=== PATIENT | male | born 1990 | race Caucasian/White ===

== ENCOUNTER 2016-10-06 23:21 | Emergency (ER) | payer OTHER ==
[~2016-10-06] VITALS: Ht 167.6 cm; Wt 83.3 kg
[~2016-10-06 23:21] MED LIST: ALBINS/ INH; AMOX875T PO; FLUT220A INH; LORA10TA44 PO; ONDA4TAB46 PO; ONDA8TAB7 PO; PRLSR20 PO; ZNTT/150 PO
[2016-10-06 23:36] VITALS: TEMP 37; Ht 167.6 cm; Wt 83.3 kg
[2016-10-06] MEDS ORDERED: METOCLOPRAMIDE HCL INJ 5 MG/ML 2 ML VIAL IV STA (23:43)
[2016-10-06] MEDS ORDERED: SODIUM CHLORIDE 0.9% 1000ML 1,000 ML IV STA (23:43)
[2016-10-06] MEDS ORDERED: DiphenhydrAMINE HCL 50 MG/ML VIAL IV STA (23:43)
[2016-10-06] MEDS ORDERED: CYM/60 PO (23:55)
[2016-10-06] MEDS ORDERED: PRT/40 PO (23:55)
[2016-10-06] MEDS ORDERED: ONDA-63 PO (23:55)
[2016-10-06] MEDS ORDERED: FLUT1AER5 PO (23:55)
[2016-10-07 00:16] LABS: BASO % 0.4 %; BASO ABS # 0.04 K/uL (0-0.2); COMPLETE YES; EOS % 0.9 %; HEMATOCRIT 45.7 % (42-52); IG% 0.2 %; LYMPH ABS # 1.87 K/uL (1.2-3.4); MEAN CELL VOLUME 81.2 fL (80-100); MEAN CORPUSCULAR HGB CONC 35.7 g/dl (32-36); MEAN PLATELET VOLUME 10.4 fL (7.4-10.4); MONO % 6.1 %; NEUT % 71.4 %; PLATELET COUNT 250 K/uL (130-400); RED BLOOD COUNT 5.63 M/uL (4.7-6.1)
[2016-10-07 00:31] LABS: BUN/CREATININE RATIO 16.2 (10-20); CALCIUM 8.9 mg/dl (8.5-10.1); CREATININE 1.3 mg/dl (0.60-1.40); POTASSIUM 3.5 mmol/L (3.5-5.1)
--- NOTE | 2016-10-07 01:00 | EMERGENCY ROOM VISIT NOTE ---
History First contact with patient: 23:39 Chief Complaint: VOMITING Stated Complaint: HEADACHE,NAUSEA,VOMITING Nursing Triage Summary: Pt complains of nausea and vomiting. Recently tx for skin infection. History of Present Illness The patient is a 25 year old male who presents to the Emergency Room with complaints of nausea vomiting and mild headache with dehydration for the past day. Patient saw the family care doctor this morning and was advised to rest and do a bland diet. Patient states he was on Keflex for rash to his abdomen that is now cleared up. Patient denies chest pain, dyspnea, fever, chills, abdominal pain, diarrhea, back pain, urinary symptoms, cough, neck stiffness, sore throat, congestion. Review of Systems See HPI for pertinent positives & negatives. A total of 10 systems reviewed and were otherwise negative. Past Medical/Surgical History Medical Problems: (1) Acute postoperative abdominal pain (2) Appendicitis (3) Asthma (4) Bronchitis (5) Bronchitis (6) Chest pain (7) Chest pain (8) Costochondritis (9) Foot pain (10) Foot pain (11) Gastritis (12) Migraine (13) Nausea & vomiting (14) Nausea vomiting and diarrhea (15) Nausea, vomiting, and diarrhea (16) Open wound of mouth (17) Pneumonia (18) Postoperative abdominal pain (19) Rectal bleeding (20) RUQ abdominal pain (21) Sinus headache (22) Vertigo (23) Vomiting and diarrhea Surgical Problems: (1) History of appendectomy (2) History of thyroglossal duct cyst removal (3) History of tonsillectomy and adenoidectomy Family History FH: cancer Hypertension Kidney stones Social History Smoking Status: Never Smoker Alcohol Use: none Drug Use: none Marital Status: single Housing Status: lives with family Occupation Status: unemployed Current/Historical Medications Scheduled Duloxetine HCl (Cymbalta), 60 MG PO DAILY Fluticasone Propionate (Inhala (Flovent Diskus), 2 PUFFS PO BID Pantoprazole (Pantoprazole Sodium), 40 MG PO DAILY Scheduled PRN Albuterol Sulf (Proventil 0.083% 2.5MG/3ML), 1 VIAL INH Q4 PRN for Wheezing Loratadine (Allergy), 10 MG PO DAILY PRN for Allergies Ondansetron (Ondansetron HCl), 8 MG PO Q6 PRN for Nausea Allergies Coded Allergies: Sumatriptan (Verified Allergy, Severe, GI SYMPTOMS, 10/06/16) Physical Exam Vital Signs Date Time Temp Pulse Resp B/P Pulse Ox O2 Delivery O2 Flow Rate FiO2 10/07/16 00:31 84 16 112/87 95 Room Air 10/06/16 23:36 37.0 97 18 137/90 96 Room Air Physical Exam VITALS: Vitals are noted on the nurse's note and reviewed by myself. Vital signs stable. GENERAL: Pleasant male, in no acute distress, nondiaphoretic, well-developed well-nourished. SKIN: The skin was without rashes, erythema, edema, or bruising. There is no tenting of the skin. Capillary reflex less than 2 seconds. HEAD: Normocephalic atraumatic. EARS: External auditory canals clear, tympanic membranes pearly hale without erythema or effusion bilaterally. EYES: Pupils equal round and reactive to light and accommodation. Conjunctivae without injection, sclerae without icterus. Extraocular movements intact. NOSE: Patent, turbinates without inflammation or discharge. No sinus tenderness. MOUTH: Mucous membranes mildly dry. Pharynx without erythema or exudate. Uvula midline. Airway patent. Tongue does not deviate. NECK: Supple without nuchal rigidity. No lymphadenopathy. No thyromegaly. Cervical spine is nontender. No JVD. HEART: Regular rate and rhythm without murmurs gallops or rubs. LUNGS: Clear to auscultation bilaterally without wheezes, rales or rhonchi. No dullness to percussion. No retractions or accessory muscle use. ABDOMEN: Positive bowel sounds x 4. Normal tympanic percussion. Soft, nontender, without masses or organomegaly. Servin sign negative. No guarding or rebound tenderness. MUSCULOSKELETAL: No muscle atrophy, erythema, or edema noted. NEURO: Patient was alert and oriented to person place and time. Normal sensation to light and sharp touch. No focal neurological deficits. Medical Decision & Procedures Laboratory Results 10/06/16 23:55 Red Blood Count 5.63, Mean Corpuscular Volume 81.2, Mean Corpuscular Hemoglobin 29.0, Mean Corpuscular Hemoglobin Concent 35.7, Mean Platelet Volume 10.4, Neutrophils (%) (Auto) 71.4, Lymphocytes (%) (Auto) 21.0, Monocytes (%) (Auto) 6.1, Eosinophils (%) (Auto) 0.9, Basophils (%) (Auto) 0.4, Neutrophils # (Auto) 6.35, Lymphocytes # (Auto) 1.87, Monocytes # (Auto) 0.54, Eosinophils # (Auto) 0.08, Basophils # (Auto) 0.04 10/06/16 23:55 Test 10/06/16 23:55 White Blood Count 8.90 K/uL (4.8-10.8) Red Blood Count 5.63 M/uL (4.7-6.1) Hemoglobin 16.3 g/dL (14.0-18.0) Hematocrit 45.7 % (42-52) Mean Corpuscular Volume 81.2 fL (80-100) Mean Corpuscular Hemoglobin 29.0 pg (25-34) Mean Corpuscular Hemoglobin Concent 35.7 g/dl (32-36) Platelet Count 250 K/uL (130-400) Mean Platelet Volume 10.4 fL (7.4-10.4) Neutrophils (%) (Auto) 71.4 % Lymphocytes (%) (Auto) 21.0 % Monocytes (%) (Auto) 6.1 % Eosinophils (%) (Auto) 0.9 % Basophils (%) (Auto) 0.4 % Neutrophils # (Auto) 6.35 K/uL (1.4-6.5) Lymphocytes # (Auto) 1.87 K/uL (1.2-3.4) Monocytes # (Auto) 0.54 K/uL (0.11-0.59) Eosinophils # (Auto) 0.08 K/uL (0-0.5) Basophils # (Auto) 0.04 K/uL (0-0.2) RDW Standard Deviation 38.4 fL (36.4-46.3) RDW Coefficient of Variation 12.9 % (11.5-14.5) Immature Granulocyte % (Auto) 0.2 % Immature Granulocyte # (Auto) 0.02 K/uL (0.00-0.02) Anion Gap 13.0 mmol/L (3-11) Est Creatinine Clear Calc Drug Dose 88.7 ml/min Estimated GFR () 88.5 Estimated GFR (Non- 76.4 BUN/Creatinine Ratio 16.2 (10-20) Calcium Level 8.9 mg/dl (8.5-10.1) Medications Administered Medications (Trade) Dose Ordered Sig/Shelli Route Start Time Stop Time Status Last Admin Dose Admin Sodium Chloride (Nss 1000ml) 1,000 ml @ 999 mls/hr Q1H1M STAT IV 10/06/16 23:43 10/07/16 00:43 DC 10/06/16 23:55 999 MLS/HR Metoclopramide HCl (Reglan Inj) 10 mg NOW STAT IV 10/06/16 23:43 10/07/16 00:03 DC 10/06/16 23:57 10 MG Diphenhydramine HCl (Benadryl Inj) 12.5 mg NOW STAT IV 10/06/16 23:43 10/07/16 00:03 DC 10/06/16 23:56 12.5 MG ED Course Prior records/ancillary studies reviewed. Triage Nursing notes reviewed. Additional history obtained from the family. The patient's history was concerning for nausea, vomiting, and headache Differential diagnosis: Etiologies such as gastritis, dehydration,, food borne illness, infections, appendicitis, diverticulitis, inflammatory bowel disease, obstruction, GI bleed , biliary pathology, as well as others were entertained. Physical examination findings: As above. Abdominal examination revealed no tenderness. Vital signs reviewed and revealed stable. ER treatment provided: IV hydration 1 L NSS. Gatorade On reassessment the patient felt better. Patient was tolerating p.o. intake. Diagnostics interpretation by me: The labs revealed no worrisome leukocytosis or electrolyte abnormality This appears to be consistent with nausea and vomiting. Patient felt much better after being medicated as above. He is tolerating fluids. He did not have acute abdomen on exam. He was advised to rest, stay well-hydrated, do clear liquid diet today and the progress aside to bland diet tomorrow. He was advised to follow-up family care in a few days or here in the ER sooner for abdominal pain, fevers, vomiting, worsening signs or symptoms or as needed. By the evaluation outlined above emergent etiologies such as appendicitis, diverticulitis, obstruction, cardiac sources, mesenteric ischemia, aortic pathology, inflammatory bowel disease, renal colic, PUD, biliary pathology, UTI , as well as others were deemed relatively unlikely. The pt informed about the findings as listed above. All questions were answered and pleased with the treatment. Return instructions were outlined and the patient was discharged in stable condition. Outpatient prescription management: zofran Referral: The patient was referred to their primary care physician for follow-up in 2 to 3 days for a recheck of the current condition. Medical Decision As above Impression Primary Impression: Nausea & vomiting Departure Information Dispostion Home / Self-Care Condition GOOD Referrals Bernice Gant D.O. (PCP) Patient Instructions My [facility] Additional Instructions DO NOT drive, drink alcohol, operate machinery, or perform dangerous activities today. You were given medications in the ER that can affect your ability to safely function or operate a vehicle. Zofran(odansetron) tablets 4mg: Take one and allow it to dissolve in your mouth every four to six hours as needed for nausea or vomiting. Rest and drink plenty of fluids as tolerated. Slow sips of water or sports drinks are recommended instead of large amounts all at once. Continue current medications. Once your stomach is settled start with a clear liquid diet (jello, soup broth, etc.) and then advance as tolerated. You should avoid full, heavy meals for about 24 hrs from the time your symptoms resolved. Return to the ER for persistent vomiting, fevers, abdominal pain, chest pains, difficulty breathing, black or bloody stools, worsening of your condition, or as needed. Follow up with your primary physician in 2-3 days for a recheck of your current condition. Problem Qualifiers Primary Impression: Nausea & vomiting Vomiting type: unspecified Vomiting Intractability: non-intractable Qualified Codes: R11.2 - Nausea with vomiting, unspecified
[2016-10-07] MEDS ORDERED: ONDANSETRON HOME PACK 4MG OD TAB PO ONE (01:15)
[2016-10-07 01:16] VITALS: BP 111/77; PULSE 97; O2SAT 95
== END 2016-10-07 01:20 | disposition home or self-care (01) ==
LOC: C.EDB 23:22 → C.EDA 10-07 01:20
DX: R11.2 Nausea with vomiting, unspecified (principal); J45.909 Unspecified asthma, uncomplicated; Z82.49 Family history of ischemic heart disease and other diseases of the circulatory system

== ENCOUNTER 2017-02-02 21:19 | Emergency (ER) | payer OTHER ==
[~2017-02-02] VITALS: Ht 167.6 cm; Wt 82.1 kg
[~2017-02-02 21:19] MED LIST changes: -AMOX875T PO; +CYM/60 PO; +FLUT1AER5 PO; -FLUT220A INH; +ONDA-63 PO; -ONDA4TAB46 PO; -ONDA8TAB7 PO; +PANT40TA2 PO; -PRLSR20 PO; -ZNTT/150 PO
[2017-02-02 21:23] VITALS: TEMP 36.4; Ht 167.6 cm; Wt 82.1 kg
[2017-02-02 21:29] VITALS: O2SAT 95
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
--- NOTE | 2017-02-02 22:13 | DIAGNOSTIC IMAGING REPORT ---
CHEST ONE VIEW PORTABLE HISTORY: Atypical CHEST PAIN COMPARISON: Chest 08/01/2016. FINDINGS: The lungs are clear. Cardiac silhouette is normal in size. No pleural effusions. No pneumothorax. Old, healed right clavicle fracture. IMPRESSION: No acute process. Electronically signed by: Edgard Escobar M.D. 02/02/2017 10:11 PM Dictated Date/Time: 02/02/2017 10:10 PM
[2017-02-02 22:14] LABS: BASO % 1.2 %; BASO ABS # 0.09 K/uL (0-0.2); COMPLETE YES; EOS % 1.9 %; HEMATOCRIT 51.1 % (42-52); IG% 0.3 %; LYMPH % 23.4 %; LYMPH ABS # 1.77 K/uL (1.2-3.4); MEAN CELL VOLUME 82.8 fL (80-100); MEAN CORPUSCULAR HEMOGLOBIN 28.8 pg (25-34); MEAN CORPUSCULAR HGB CONC 34.8 g/dl (32-36); MEAN PLATELET VOLUME 10.9 fL (7.4-10.4); MONO % 9.1 %; NEUT % 64.1 %; PLATELET COUNT 293 K/uL (130-400); RED BLOOD COUNT 6.17 M/uL (4.7-6.1); WHITE BLOOD COUNT 7.56 K/uL (4.8-10.8)
[2017-02-02] MEDS ORDERED: KETOROLAC TROMETHAMINE 30 MG/ML VIAL IV STA (22:28)
[2017-02-02 22:31] LABS: ALT/SGPT 28 U/L (12-78); BLOOD UREA NITROGEN 20 mg/dl (7-18); BUN/CREATININE RATIO 14.1 (10-20); CARBON DIOXIDE 24 mmol/L (21-32); CHLORIDE 105 mmol/L (98-107); GLUCOSE 119 mg/dl (70-99); POTASSIUM 3.7 mmol/L (3.5-5.1); SODIUM 141 mmol/L (136-145)
[2017-02-02 22:34] LABS: ALKALINE PHOSPHATASE 84 U/L (45-117); AST/SGOT 17 U/L (15-37); CALCIUM 9.4 mg/dl (8.5-10.1)
[2017-02-02 23:24] VITALS: PULSE 88; O2SAT 95
[2017-02-02 23:28] VITALS: BP 124/92
== END 2017-02-02 23:34 | disposition home or self-care (01) ==
LOC: C.EDB 21:21 → C.EDA 23:34
DX: R07.9 Chest pain, unspecified (principal); M94.0 Chondrocostal junction syndrome [Tietze]; J45.909 Unspecified asthma, uncomplicated; G43.909 Migraine, unspecified, not intractable, without status migrainosus; Z80.9 Family history of malignant neoplasm, unspecified; Z82.49 Family history of ischemic heart disease and other diseases of the circulatory system; Z84.1 Family history of disorders of kidney and ureter; Z79.899 Other long term (current) drug therapy

== ENCOUNTER 2017-05-01 16:45 | Emergency (ER) | payer OTHER ==
[~2017-05-01] VITALS: Ht 167.6 cm; Wt 85.6 kg
[~2017-05-01 16:45] MED LIST changes: -PANT40TA2 PO; +PRT/40 PO
[2017-05-01 16:50] VITALS: Ht 167.6 cm; Wt 85.6 kg
[2017-05-01] MEDS ORDERED: KETOROLAC TROMETHAMINE 30 MG/ML VIAL IV STA (17:13)
[2017-05-01] MEDS ORDERED: SODIUM CHLORIDE 0.9% 1000ML 1,000 ML IV STA (17:13)
[2017-05-01] MEDS ORDERED: DiphenhydrAMINE HCL 50 MG/ML VIAL IV STA (17:13)
[2017-05-01] MEDS ORDERED: PROCHLORPERAZINE 5 MG/ML 2 ML VIAL IV STA (17:13)
[2017-05-01 17:57] LABS: BASO % 0.6 %; BASO ABS # 0.04 K/uL (0-0.2); COMPLETE YES; EOS % 2.1 %; HEMATOCRIT 46.3 % (42-52); IG% 0.2 %; LYMPH % 33.8 %; LYMPH ABS # 2.09 K/uL (1.2-3.4); MEAN CELL VOLUME 84.5 fL (80-100); MEAN CORPUSCULAR HEMOGLOBIN 28.1 pg (25-34); MEAN CORPUSCULAR HGB CONC 33.3 g/dl (32-36); MEAN PLATELET VOLUME 10.7 fL (7.4-10.4); MONO % 7.4 %; NEUT % 55.9 %; PLATELET COUNT 256 K/uL (130-400); RED BLOOD COUNT 5.48 M/uL (4.7-6.1); WHITE BLOOD COUNT 6.18 K/uL (4.8-10.8)
--- NOTE | 2017-05-01 17:59 | DIAGNOSTIC IMAGING REPORT ---
CT HEAD WITHOUT CONTRAST (CT) CLINICAL HISTORY: Persistent headache COMPARISON STUDY: 06/01/2010 TECHNIQUE: Axial CT of the brain is performed from the vertex to the skull base. IV contrast was not administered for this examination. A dose lowering technique was utilized adhering to the principles of ALARA. CT DOSE: FINDINGS: No intra or extra-axial mass lesions are visualized. There is no CT evidence of acute cortical infarction. There is no evidence of midline shift. There is no acute hemorrhage. No calvarial fractures are visualized. There is no evidence of pathologic ventricular dilatation. There is no evidence of acute sinusitis IMPRESSION: Normal noncontrast head CT. Electronically signed by: Shant Crawford M.D. 05/01/2017 5:57 PM Dictated Date/Time: 05/01/2017 5:56 PM
--- NOTE | 2017-05-01 18:10 | DIAGNOSTIC IMAGING REPORT ---
CT OF THE CERVICAL SPINE CLINICAL HISTORY: neck pain with radiculopathy COMPARISON STUDY: No previous studies for comparison. CT DOSE: 1021.93 mGy.cm TECHNIQUE: CT scan of the cervical spine was performed from the skull base to the thoracic inlet. Images are reviewed in the axial, sagittal, and coronal planes. IV contrast was not administered for this examination. A dose lowering technique was utilized adhering to the principles of ALARA. FINDINGS: The visualized portions of the lung apices reveal no evidence of pneumothorax. There are mildly prominent retromandibular jugular digastric lymph nodes, likely reactive. The prevertebral soft tissues are normal. No fractures or subluxations are visualized. No significant degenerative changes are evident. If there is clinical concern over the presence of cord pathology or nerve root impingement, an MRI would be considered the test of choice. IMPRESSION: Unremarkable CT scan of the cervical spine. No fractures, subluxations, or destructive lesions are visualized. Electronically signed by: Shant Crawford M.D. 05/01/2017 6:08 PM Dictated Date/Time: 05/01/2017 6:06 PM
[2017-05-01 18:14] LABS: CREATININE 1.1 mg/dl (0.60-1.40); MAGNESIUM 2.2 mg/dl (1.8-2.4); POTASSIUM 3.8 mmol/L (3.5-5.1)
--- NOTE | 2017-05-01 18:41 | EMERGENCY ROOM VISIT NOTE ---
ED Visit Note First contact with patient: 16:54 CHIEF COMPLAINT: Headache HISTORY OF PRESENT ILLNESS: This 26 year old male patient presented to the emergency department, ambulatory, with his parents, complaining of a gradual onset of a severe generalized headache that started 4 days ago. The patient states he does get migraine headaches, but has not had one like this in the past. He reports experiencing pain in his head from the top of his head radiating to the front, which she describes as "like needles". He states the pain feels like the pain he would experience with a thorn in his hand. The patient states he called his PCP, however was unable to get in for an appointment today. The patient has been taking Excedrin Migraine twice per day , and states it has not been helping. He has also been taking 400 mg ibuprofen once daily without relief. There has been no associated photophobia, phonophobia , nausea and vomiting. The patient denies fever or chills recently, and there is no weakness or numbness of the extremities. He does report occasional tingling in his left arm when holding his arm above his head for long periods of time. There is no difficulty with speech or vision. No trauma to the head and no neck pain. The pain is severe and constant, but has not seemed to change in severity. The patient rates the pain as dull and 7/10. This is not the worst headache of the life and is similar to previous migraines. Previous imaging studies of the brain have been normal. REVIEW OF SYSTEMS: A 10-system review of systems was performed with positives and pertinent negatives listed in the history of present illness. All other systems were reviewed and are negative. ALLERGIES: Imitrex MEDICATIONS: Loratadine, Proventil, pantoprazole, Zofran, Flovent, Cymbalta PMH: Asthma, depression SOCIAL HISTORY: The patient lives locally with family. He denies drug or alcohol use. The patient admits to chewing tobacco. PHYSICAL EXAM: Vital Signs: Reviewed Nurse's notes, vital signs stable. GENERAL : This is a 26-year-old white male, who appears to be lying comfortably on the bed, but non toxic in appearance and in no acute distress. MENTAL STATUS: Alert , oriented, and coherent. HEENT: Normocephalic. PERRLA. EOMI. Nares patent without nuchal rigidity. Tympanic membranes pearly hale without erythema or effusion bilaterally. Mucous membranes moist. NECK: Supple, no nuchal rigidity , nontender, no lymphadenopathy. HEART: Regular rhythm and normal rate without murmurs, ectopy, gallops, or rubs. LUNGS: Clear to auscultation bilaterally without wheezes, rales or rhonchi. No dullness to percussion. No accessory muscle use. No retractions. SKIN: Normal. NEUROLOGICAL: Pupils are round, equal and react to light. The optic fundi are normal and the discs are flat. The patient moves all extremities well and the gait is normal. RADIOLOGY: CT Head without Contrast: CT HEAD WITHOUT CONTRAST (CT) CLINICAL HISTORY: Persistent headache COMPARISON STUDY: 06/01/2010 TECHNIQUE: Axial CT of the brain is performed from the vertex to the skull base. IV contrast was not administered for this examination. A dose lowering technique was utilized adhering to the principles of ALARA. CT DOSE: FINDINGS: No intra or extra-axial mass lesions are visualized. There is no CT evidence of acute cortical infarction. There is no evidence of midline shift. There is no acute hemorrhage. No calvarial fractures are visualized. There is no evidence of pathologic ventricular dilatation. There is no evidence of acute sinusitis IMPRESSION: Normal noncontrast head CT. CT C-Spine without Contrast: CT OF THE CERVICAL SPINE CLINICAL HISTORY: neck pain with radiculopathy COMPARISON STUDY: No previous studies for comparison. CT DOSE: 1021.93 mGy.cm TECHNIQUE: CT scan of the cervical spine was performed from the skull base to the thoracic inlet. Images are reviewed in the axial, sagittal, and coronal planes. IV contrast was not administered for this examination. A dose lowering technique was utilized adhering to the principles of ALARA. FINDINGS: The visualized portions of the lung apices reveal no evidence of pneumothorax. There are mildly prominent retromandibular jugular digastric lymph nodes, likely reactive. The prevertebral soft tissues are normal. No fractures or subluxations are visualized. No significant degenerative changes are evident. If there is clinical concern over the presence of cord pathology or nerve root impingement, an MRI would be considered the test of choice. IMPRESSION: Unremarkable CT scan of the cervical spine. No fractures, subluxations, or destructive lesions are visualized. EMERGENCY DEPARTMENT COURSE: I examined the patient. Because of his symptoms being unusual and different from his normal migraines, as well as paresthesias in left arm, we did opt to perform a CT scan and basic labs. These were all normal. The patient was given 1 L normal saline solution, Compazine, Benadryl, and Toradol for his symptoms. He did report significant improvement in his symptoms. CBC was without leukocytosis, anemia, thrombocytopenia. Electrolytes were normal. Magnesium was normal. The differential diagnosis includes acute intracranial bleed, meningitis, encephalitis, mass or mass effect, sinusitis, infection, tumor, headache, temporal arteritis and carbon monoxide exposure, and migraine. The patient was discharged home in stable condition with his mother driving. DIAGNOSIS: Headache DISCHARGE INSTRUCTIONS & TREATMENT: DO NOT drive, drink alcohol, operate machinery, or perform dangerous activities today. You were given medications in the ER that can affect your ability to safely function or operate a vehicle. Rest today in a quiet, peaceful, dark environment and get a full 8-10 hrs of sleep tonight. Avoid loud noises, smoke/smoking, alcohol, bright lights, stress, or physical exertion today to minimize the chance the headache may return. Continue current medications as prescribed. Ibuprofen(Motrin, Advil) may be used for fever or pain. Use 600mg every six hours as needed. Take with food. Avoid using more than 2400mg in a 24 hour period. Do not use 2400mg per day for more than three consecutive days without physician direction. Prolonged inappropriate use can lead to stomach upset or ulcers. (AND/OR) Acetaminophen(Tylenol) may be used for fever or pain. Use 1000mg every six hours as needed. Avoid using more than 3000mg in a 24 hour period. He may consider adding magnesium 400 mg daily to help with headaches. Drink plenty of fluids, and limit caffeine. You should be drinking mostly water. Return to the ER for passing out, worsening headache, vision problems, neck stiffness/pain, fevers, vomiting, worsening of your condition, or as needed. Follow up with your primary physician in 2-3 days for a recheck of your current condition. Problem List Medical Problems: (1) Acute postoperative abdominal pain Status: Resolved (2) Appendicitis Status: Resolved (3) Asthma Status: Chronic (4) Bronchitis Status: Resolved (5) Bronchitis Status: Resolved (6) Chest pain Status: Resolved (7) Chest pain Status: Resolved (8) Costochondritis Status: Resolved (9) Foot pain Status: Resolved (10) Foot pain Status: Resolved (11) Gastritis Status: Chronic (12) Migraine Status: Resolved (13) Nausea & vomiting Status: Resolved (14) Nausea vomiting and diarrhea Status: Resolved (15) Nausea, vomiting, and diarrhea Status: Resolved (16) Open wound of mouth Status: Resolved (17) Pneumonia Status: Resolved (18) Postoperative abdominal pain Status: Resolved (19) Rectal bleeding Status: Resolved (20) RUQ abdominal pain Status: Resolved (21) Sinus headache Status: Resolved (22) Vertigo Status: Resolved (23) Vomiting and diarrhea Status: Resolved Surgical Problems: (1) History of appendectomy Status: Resolved (2) History of thyroglossal duct cyst removal Status: Resolved (3) History of tonsillectomy and adenoidectomy Status: Resolved Current/Historical Medications Scheduled Duloxetine HCl (Cymbalta), 60 MG PO DAILY Fluticasone Propionate (Inhala (Flovent Diskus), 2 PUFFS PO BID Pantoprazole (Pantoprazole Sodium), 40 MG PO DAILY Scheduled PRN Albuterol Sulf (Proventil 0.083% 2.5MG/3ML), 1 VIAL INH Q4 PRN for Wheezing Loratadine (Allergy), 10 MG PO DAILY PRN for Allergies Ondansetron (Ondansetron HCl), 8 MG PO Q6 PRN for Nausea Allergies Coded Allergies: Sumatriptan (Verified Allergy, Severe, GI SYMPTOMS, 05/01/17) Vital Signs Date Time Temp Pulse Resp B/P (MAP) Pulse Ox O2 Delivery O2 Flow Rate FiO2 05/01/17 19:16 37.0 90 16 125/81 96 05/01/17 19:13 90 16 125/81 96 Room Air 05/01/17 16:50 37.0 104 16 135/86 97 Room Air Laboratory Results 05/01/17 17:45 Red Blood Count 5.48, Mean Corpuscular Volume 84.5, Mean Corpuscular Hemoglobin 28.1, Mean Corpuscular Hemoglobin Concent 33.3, Mean Platelet Volume 10.7, Neutrophils (%) (Auto) 55.9, Lymphocytes (%) (Auto) 33.8, Monocytes (%) (Auto) 7.4, Eosinophils (%) (Auto) 2.1, Basophils (%) (Auto) 0.6, Neutrophils # (Auto) 3.45, Lymphocytes # (Auto) 2.09, Monocytes # (Auto) 0.46, Eosinophils # (Auto) 0.13, Basophils # (Auto) 0.04 05/01/17 17:45 Test 05/01/17 17:45 White Blood Count 6.18 K/uL (4.8-10.8) Red Blood Count 5.48 M/uL (4.7-6.1) Hemoglobin 15.4 g/dL (14.0-18.0) Hematocrit 46.3 % (42-52) Mean Corpuscular Volume 84.5 fL (80-100) Mean Corpuscular Hemoglobin 28.1 pg (25-34) Mean Corpuscular Hemoglobin Concent 33.3 g/dl (32-36) Platelet Count 256 K/uL (130-400) Mean Platelet Volume 10.7 fL (7.4-10.4) Neutrophils (%) (Auto) 55.9 % Lymphocytes (%) (Auto) 33.8 % Monocytes (%) (Auto) 7.4 % Eosinophils (%) (Auto) 2.1 % Basophils (%) (Auto) 0.6 % Neutrophils # (Auto) 3.45 K/uL (1.4-6.5) Lymphocytes # (Auto) 2.09 K/uL (1.2-3.4) Monocytes # (Auto) 0.46 K/uL (0.11-0.59) Eosinophils # (Auto) 0.13 K/uL (0-0.5) Basophils # (Auto) 0.04 K/uL (0-0.2) RDW Standard Deviation 40.8 fL (36.4-46.3) RDW Coefficient of Variation 13.3 % (11.5-14.5) Immature Granulocyte % (Auto) 0.2 % Immature Granulocyte # (Auto) 0.01 K/uL (0.00-0.02) Anion Gap 4.0 mmol/L (3-11) Est Creatinine Clear Calc Drug Dose 105.3 ml/min Estimated GFR () 107.6 Estimated GFR (Non- 92.8 BUN/Creatinine Ratio 14.0 (10-20) Calcium Level 9.0 mg/dl (8.5-10.1) Magnesium Level 2.2 mg/dl (1.8-2.4) Medications Administered Medications (Trade) Dose Ordered Sig/Shelli Route Start Time Stop Time Status Last Admin Dose Admin Sodium Chloride 1,000 ml @ 999 mls/hr Q1H1M STAT IV 05/01/17 17:13 05/01/17 18:13 DC 05/01/17 17:41 999 MLS/HR Diphenhydramine HCl (Benadryl Inj) 25 mg NOW STAT IV 05/01/17 17:13 05/01/17 17:19 DC 05/01/17 17:40 25 MG Prochlorperazine Edisylate (Compazine Inj) 10 mg NOW STAT IV 05/01/17 17:13 05/01/17 17:19 DC 05/01/17 17:40 10 MG Ketorolac Tromethamine (Toradol Inj) 30 mg NOW STAT IV 05/01/17 17:13 05/01/17 17:19 DC 05/01/17 17:41 30 MG Departure Information Impression Primary Impression: Headache Dispostion Home / Self-Care Condition GOOD Referrals Bernice Gant D.George (PCP) Patient Instructions ED Headache Tension, My [facility] Additional Instructions DO NOT drive, drink alcohol, operate machinery, or perform dangerous activities today. You were given medications in the ER that can affect your ability to safely function or operate a vehicle. Rest today in a quiet, peaceful, dark environment and get a full 8-10 hrs of sleep tonight. Avoid loud noises, smoke/smoking, alcohol, bright lights, stress, or physical exertion today to minimize the chance the headache may return. Continue current medications as prescribed. Ibuprofen(Motrin, Advil) may be used for fever or pain. Use 600mg every six hours as needed. Take with food. Avoid using more than 2400mg in a 24 hour period. Do not use 2400mg per day for more than three consecutive days without physician direction. Prolonged inappropriate use can lead to stomach upset or ulcers. (AND/OR) Acetaminophen(Tylenol) may be used for fever or pain. Use 1000mg every six hours as needed. Avoid using more than 3000mg in a 24 hour period. He may consider adding magnesium 400 mg daily to help with headaches. Drink plenty of fluids, and limit caffeine. You should be drinking mostly water. Return to the ER for passing out, worsening headache, vision problems, neck stiffness/pain, fevers, vomiting, worsening of your condition, or as needed. Follow up with your primary physician in 2-3 days for a recheck of your current condition. Problem Qualifiers Primary Impression: Headache Headache type: tension-type Headache chronicity pattern: acute headache Intractability: not intractable Qualified Codes: G44.209 - Tension-type headache, unspecified, not intractable
[2017-05-01 19:16] VITALS: BP 125/81; PULSE 90; TEMP 37; O2SAT 96
== END 2017-05-01 19:17 | disposition home or self-care (01) ==
LOC: C.EDB 16:49 → C.EDC 19:17
DX: G44.209 Tension-type headache, unspecified, not intractable (principal); J45.909 Unspecified asthma, uncomplicated; F32.9 Major depressive disorder, single episode, unspecified; F17.220 Nicotine dependence, chewing tobacco, uncomplicated; Z87.01 Personal history of pneumonia (recurrent); Z90.89 Acquired absence of other organs; Z98.890 Other specified postprocedural states; Z79.899 Other long term (current) drug therapy

== ENCOUNTER 2017-06-10 17:46 | Emergency (ER) | payer OTHER ==
[~2017-06-10] VITALS: Ht 167.6 cm; Wt 84.0 kg
[2017-06-10 17:54] VITALS: Ht 167.6 cm; Wt 84.0 kg
[2017-06-10] MEDS ORDERED: MAGN400T6 PO (18:20)
[2017-06-10] MEDS ORDERED: VITB2100 PO (18:23)
--- NOTE | 2017-06-10 19:10 | DIAGNOSTIC IMAGING REPORT ---
LEFT KNEE 3 VIEWS HISTORY: left knee pain, no injury COMPARISON: None. FINDINGS: There is no fracture or dislocation. Soft tissues are unremarkable. No radiopaque foreign bodies. Trace knee effusion. IMPRESSION: No fractures. Trace knee effusion. Electronically signed by: Edgard Escobar M.D. 06/10/2017 7:08 PM Dictated Date/Time: 06/10/2017 7:07 PM
[2017-06-10] MEDS ORDERED: NAPR-1169 PO (19:27)
--- NOTE | 2017-06-10 19:28 | EMERGENCY ROOM VISIT NOTE ---
ED Visit Note First contact with patient: 18:00 CHIEF COMPLAINT: Knee pain HISTORY OF PRESENT ILLNESS: This 26-year-old male patient presents to the emergency department ambulatory complaining of pain in the left knee. The patient states that he has had gradually worsening pain in the left knee for the past one week. He denies any injury to the knee. He states the pain is worse when he wakes up in the morning in improved slightly throughout the day. He rates the discomfort an 8/10. The pain is worse with weightbearing. The pain does not radiate anywhere. He has been taking ibuprofen without relief. He does report a history of knee pain in the past and was seen here and had negative x-rays. He did not follow-up with orthopedics. No ankle, foot or hip pain. REVIEW OF SYSTEMS: A 6 system review of systems was completed with positives and pertinent negatives listed in the HPI. ALLERGIES: Sumatriptan MEDICATIONS: See med list PMH: No significant past medical history. SOCIAL HISTORY: The patient lives locally with family. PHYSICAL EXAM: Vital Signs: Reviewed Nurse's notes, vital signs stable. GENERAL : This is a 26-year-old male, no acute distress, but appears in pain, well- developed, well-nourished. MENTAL STATUS: Alert, oriented to person place and time, and cooperative. MUSCULOSKELETAL: The left knee is not swollen. There is no ecchymosis. There is no significant joint effusion present. The patient is slightly tender along the medial aspect of the knee. There is no joint line tenderness. The patella does not subluxate. Range of motion is full. Strength of the quads and hamstrings is 5/5. Les's is negative. Maryanne's and Anterior Drawer tests are negative. There is no laxity with varus and valgus stressing. The foot and toes are warm and well-perfused. Dorsalis pedis pulse 2+. Sensation to pain and light touch is intact. Capillary refill less than 2 seconds. RADIOGRAPHIC FINDINGS: LEFT KNEE 3 VIEWS HISTORY: left knee pain, no injury COMPARISON: None. FINDINGS: There is no fracture or dislocation. Soft tissues are unremarkable. No radiopaque foreign bodies. Trace knee effusion. IMPRESSION: No fractures. Trace knee effusion. EMERGENCY DEPARTMENT COURSE: I examined the patient. X-rays of the left knee were reviewed by myself and read by radiology and reveal a trace effusion with no acute findings. There is no erythema or warmth to suggest an infectious or inflammatory process. Patient does have crutches at home and will use these as needed. An Robert wrap was applied to the knee. He was given a prescription for Naprosyn. Conservative measures were discussed. He was given information for orthopedic follow-up. The patient verbalized understanding of my assessment and treatment plan. The patient was discharged home in good condition. Blood pressure screening: Patient was found to have normal blood pressure on screening and does not require follow-up. Medication reconciliation: I attest that I have personally reviewed the patient 's current medication list. DIAGNOSIS: Left knee pain Problem List Medical Problems: (1) Acute postoperative abdominal pain Status: Resolved (2) Appendicitis Status: Resolved (3) Asthma Status: Chronic (4) Bronchitis Status: Resolved (5) Bronchitis Status: Resolved (6) Chest pain Status: Resolved (7) Chest pain Status: Resolved (8) Costochondritis Status: Resolved (9) Foot pain Status: Resolved (10) Foot pain Status: Resolved (11) Gastritis Status: Chronic (12) Migraine Status: Resolved (13) Nausea & vomiting Status: Resolved (14) Nausea vomiting and diarrhea Status: Resolved (15) Nausea, vomiting, and diarrhea Status: Resolved (16) Open wound of mouth Status: Resolved (17) Pneumonia Status: Resolved (18) Postoperative abdominal pain Status: Resolved (19) Rectal bleeding Status: Resolved (20) RUQ abdominal pain Status: Resolved (21) Sinus headache Status: Resolved (22) Vertigo Status: Resolved (23) Vomiting and diarrhea Status: Resolved Surgical Problems: (1) History of appendectomy Status: Resolved (2) History of thyroglossal duct cyst removal Status: Resolved (3) History of tonsillectomy and adenoidectomy Status: Resolved Current/Historical Medications Scheduled Duloxetine HCl (Cymbalta), 60 MG PO DAILY Fluticasone Propionate (Inhala (Flovent Diskus), 2 PUFFS PO BID Magnesium Oxide (Mag-Ox), 400 MG PO DAILY Naproxen (Naprosyn), 500 MG PO BID Pantoprazole (Pantoprazole Sodium), 40 MG PO DAILY Riboflavin (Vitamin B-2), 400 MG PO DAILY Scheduled PRN Albuterol Sulf (Proventil 0.083% 2.5MG/3ML), 1 VIAL INH Q4 PRN for Wheezing Loratadine (Allergy), 10 MG PO DAILY PRN for Allergies Ondansetron (Ondansetron HCl), 8 MG PO Q6 PRN for Nausea Allergies Coded Allergies: Sumatriptan (Verified Allergy, Severe, GI SYMPTOMS, 05/01/17) Vital Signs Date Time Temp Pulse Resp B/P (MAP) Pulse Ox O2 Delivery O2 Flow Rate FiO2 06/10/17 20:04 36.8 83 18 132/82 95 06/10/17 20:02 83 18 132/82 95 Room Air 06/10/17 17:54 36.8 105 16 128/83 96 Departure Information Impression Primary Impression: Knee pain Dispostion Home / Self-Care Condition GOOD Prescriptions Naproxen (Naprosyn) 500 Mg Tab 500 MG PO BID for 7 Days, #14 TAB Prov: Estelle Urias PA-C 06/10/17 Referrals Bernice Gant D.O. (PCP) Patient Instructions My [facility] Additional Instructions You have been treated in the Emergency Department for Knee Pain. Naprosyn as prescribed. For pain control, you can use the following [id number] medicines (if >12 yo): - Regular strength (325mg/tab) Tylenol (acetaminophen) 2 tabs every 4-6 hours as needed. Do not exceed 12 tablets in a 24 hour period. Avoid taking more than 4 grams (4000 mg) of Tylenol per day. This includes any other sources of acetaminophen you may take on a regular basis. If this is a recent injury (<24 hrs), ice can be applied to the area of pain for the first 3 days to help decrease pain and inflammation. Ice massages can be performed by freezing water in a paper cup, peeling back the cup to expose the ice and then massaging over the affected area. You have been provided the number for an Orthopaedic Surgeon. You should call this number as soon as possible to establish a follow-up visit from today's Emergency Department visit. Wear the Robert wrap for pain as needed. Return to the Emergency Department if your current symptoms worsen despite treatment course outlined above. Problem Qualifiers Primary Impression: Knee pain Chronicity: acute Laterality: left Qualified Codes: M25.562 - Pain in left knee
[2017-06-10 20:04] VITALS: BP 132/82; PULSE 83; TEMP 36.8; O2SAT 95
== END 2017-06-10 20:05 | disposition home or self-care (01) ==
LOC: C.EDB 17:47 → C.EDD 20:05
DX: M25.562 Pain in left knee (principal)

== ENCOUNTER 2017-06-29 10:35 | Emergency (ER) | payer OTHER ==
[~2017-06-29] VITALS: Ht 167.6 cm; Wt 82.8 kg
[~2017-06-29 10:35] MED LIST changes: +MAGN400T6 PO; +PANT40TA2 PO; -PRT/40 PO; +VITB2100 PO
[2017-06-29 10:45] VITALS: TEMP 37; Ht 167.6 cm; Wt 82.8 kg
[2017-06-29] MEDS ORDERED: GI COCKTAIL PO STA (11:04)
--- NOTE | 2017-06-29 11:08 | EMERGENCY ROOM VISIT NOTE ---
History First contact with patient: 10:55 Chief Complaint: CONGESTION Stated Complaint: COUGH, CHEST PAINS, FEELS SOMETHING STUCK/THROAT History of Present Illness The patient is a 26 year old male who presents to the Emergency Room via private vehicle accompanied by parents with complaints of "cough, chest pain, feels like something stuck in his throat". The patient states that for the past week now he has had a sensation as if there is something stuck in his throat followed by a cough. He states that he is to have a scope of the nose and throat performed by the ENT surgeon Dr. Suarez this coming Friday. He states that he saw his family doctor on Friday or and they were going to prescribe him something for his cough as per patient. He states that since then he has had chest pain and trouble breathing. He points to the midsternal region as a location of pain that he rates as very minimal. He states that he has a history of thyroglossal duct cyst extraction and 2007. He denies any neck pain, recent travel, history of blood clots, history of heart problems. Review of Systems A complete 10-point Review of Systems was discussed with the patient, with pertinent positives and negatives listed in the History of Present Illness. All remaining Review of Systems questions can be considered negative unless otherwise specified. Past Medical/Surgical History Medical Problems: (1) Acute postoperative abdominal pain (2) Appendicitis (3) Asthma (4) Bronchitis (5) Bronchitis (6) Chest pain (7) Chest pain (8) Costochondritis (9) Foot pain (10) Foot pain (11) Gastritis (12) Migraine (13) Nausea & vomiting (14) Nausea vomiting and diarrhea (15) Nausea, vomiting, and diarrhea (16) Open wound of mouth (17) Pneumonia (18) Postoperative abdominal pain (19) Rectal bleeding (20) RUQ abdominal pain (21) Sinus headache (22) Vertigo (23) Vomiting and diarrhea Surgical Problems: (1) History of appendectomy (2) History of thyroglossal duct cyst removal (3) History of tonsillectomy and adenoidectomy Family History FH: cancer Hypertension Kidney stones Social History Smoking Status: Never Smoker Alcohol Use: none Drug Use: none Marital Status: single Housing Status: lives with family Occupation Status: unemployed Current/Historical Medications Scheduled Duloxetine HCl (Cymbalta), 60 MG PO DAILY Fluticasone Propionate (Inhala (Flovent Diskus), 2 PUFFS PO BID Guaifenesin-Codeine (Virtussin A/C 100-10 mg/5Ml), 1 DOSE PO UD Loratadine (Claritin), 10 MG PO DAILY Magnesium Oxide (Mag-Ox), 400 MG PO DAILY Pantoprazole (Pantoprazole Sodium), 40 MG PO DAILY Riboflavin (Vitamin B-2), 400 MG PO DAILY Topiramate (Topiramate), 1 TAB PO DAILY Scheduled PRN Albuterol Sulf (Proventil 0.083% 2.5MG/3ML), 1 VIAL INH Q4 PRN for Wheezing Ondansetron (Ondansetron HCl), 8 MG PO Q6 PRN for Nausea Physical Exam Vital Signs Date Time Temp Pulse Resp B/P (MAP) Pulse Ox O2 Delivery O2 Flow Rate FiO2 06/29/17 13:20 89 20 112/77 99 Room Air 06/29/17 12:05 90 16 95 06/29/17 12:01 120/74 06/29/17 11:54 107/77 06/29/17 11:45 98 06/29/17 11:30 94 Room Air 06/29/17 11:30 97 Room Air 06/29/17 10:45 37.0 100 20 126/85 96 Room Air Physical Exam VITAL SIGNS - Vital signs and nursing notes were reviewed. Stable. GENERAL -26-year-old male appearing his stated age who is in no acute distress. Communicates well with provider and answers questions appropriately. SKIN - Without rashes. Skin overlying the neck is unremarkable. HEAD - NC/AT. EYES - PERRL with EOMI bilaterally. Sclera anicteric. EARS - No deformities of external structures noted on gross examination bilaterally. No pain elicited with palpation of the tragus bilaterally. External auditory canals without discharge or otorrhea. Tympanic membranes pearly hale without retraction or bulging. No fluid or purulent material visualized behind the TM. Handle of malleus, umbo, cone of light, pars tensa/ flaccid all easily visualized. NOSE - Midline and without cyanosis. No epistaxis or purulent drainage noted. Septum midline without deviation or septal hematoma noted. MOUTH/OROPHARYNX - Without perioral cyanosis. Buccal mucosa pink and moist and without leukoplakia. Tongue midline with equal elevation of palate bilaterally. No tonsillar hypertrophy, erythema, or exudates noted. Fair dentition noted. NECK - Neck with FROM. Supple to palpation. No anterior cervical lymphadenopathy noted. No nuchal rigidity. No palpable mass or thyromegaly. LUNGS - Chest wall symmetric without accessory muscle use, intercostals retractions, or central cyanosis. Normal vesicular breath sounds CTA B/L. No wheezes, rales, or rhonchi appreciated. CARDIAC - RRR with S1/S2. No murmur, rubs, or gallops appreciated. ABDOMEN - Abdominal contour normal without pulsations or visible masses. BS normoactive all four quadrants. No tenderness, palpable masses, hepatosplenomegaly, or ascites noted. Medical Decision & Procedures ER Provider Diagnostic Interpretation: SOFT TISSUE NECK HISTORY: 26 years-old Male Sensation of something stuck in throat, cough, dyspnea acute cough with globus sensation of the neck COMPARISON: Chest radiograph of same day TECHNIQUE: AP and lateral soft tissue neck radiograph FINDINGS: No prevertebral soft tissue swelling. Epiglottis and aryepiglottic folds are unremarkable. No opaque foreign body. The imaged cervical spine appears intact without acute fracture, subluxation or significant degenerative changes. Imaged lung apices are clear. IMPRESSION: Unremarkable soft tissue neck radiographs The above report was generated using voice recognition software. It may contain grammatical, syntax or spelling errors. Electronically signed by: Elder Ferrer M.D. 06/29/2017 11:40 AM Dictated Date/Time: 06/29/2017 11:38 AM CHEST 2 VIEWS ROUTINE HISTORY: 26 years-old Male Cough, chest pain, shortness of breath acute cough COMPARISON: Chest radiograph 02/02/2017 TECHNIQUE: PA and lateral views of the chest FINDINGS: Cardiomediastinal and hilar silhouettes are within normal limits. There is no pneumothorax, pleural effusion, focal airspace consolidation or overt pulmonary edema. Bones of the chest are grossly intact. Remote distal right clavicular fracture. IMPRESSION: No acute cardiopulmonary process. The above report was generated using voice recognition software. It may contain grammatical, syntax or spelling errors. Electronically signed by: Elder Ferrer M.D. 06/29/2017 11:36 AM Dictated Date/Time: 06/29/2017 11:35 AM Laboratory Results 06/29/17 11:10 Red Blood Count 5.38, Mean Corpuscular Volume 83.6, Mean Corpuscular Hemoglobin 28.8, Mean Corpuscular Hemoglobin Concent 34.4, Mean Platelet Volume 9.9, Neutrophils (%) (Auto) 65.4, Lymphocytes (%) (Auto) 21.4, Monocytes (%) (Auto) 8.3, Eosinophils (%) (Auto) 3.8, Basophils (%) (Auto) 0.7, Neutrophils # (Auto) 3.64, Lymphocytes # (Auto) 1.19, Monocytes # (Auto) 0.46, Eosinophils # (Auto) 0.21, Basophils # (Auto) 0.04 06/29/17 11:10 Test 06/29/17 11:10 White Blood Count 5.56 K/uL (4.8-10.8) Red Blood Count 5.38 M/uL (4.7-6.1) Hemoglobin 15.5 g/dL (14.0-18.0) Hematocrit 45.0 % (42-52) Mean Corpuscular Volume 83.6 fL (80-100) Mean Corpuscular Hemoglobin 28.8 pg (25-34) Mean Corpuscular Hemoglobin Concent 34.4 g/dl (32-36) Platelet Count 274 K/uL (130-400) Mean Platelet Volume 9.9 fL (7.4-10.4) Neutrophils (%) (Auto) 65.4 % Lymphocytes (%) (Auto) 21.4 % Monocytes (%) (Auto) 8.3 % Eosinophils (%) (Auto) 3.8 % Basophils (%) (Auto) 0.7 % Neutrophils # (Auto) 3.64 K/uL (1.4-6.5) Lymphocytes # (Auto) 1.19 K/uL (1.2-3.4) Monocytes # (Auto) 0.46 K/uL (0.11-0.59) Eosinophils # (Auto) 0.21 K/uL (0-0.5) Basophils # (Auto) 0.04 K/uL (0-0.2) RDW Standard Deviation 40.5 fL (36.4-46.3) RDW Coefficient of Variation 13.4 % (11.5-14.5) Immature Granulocyte % (Auto) 0.4 % Immature Granulocyte # (Auto) 0.02 K/uL (0.00-0.02) D-Dimer < 190 ug/L FEU (0-500) Anion Gap 7.0 mmol/L (3-11) Est Creatinine Clear Calc Drug Dose 90.5 ml/min Estimated GFR () 91.3 Estimated GFR (Non- 78.8 BUN/Creatinine Ratio 13.8 (10-20) Calcium Level 9.0 mg/dl (8.5-10.1) Total Bilirubin 0.3 mg/dl (0.2-1) Aspartate Amino Transf (AST/SGOT) 16 U/L (15-37) Alanine Aminotransferase (ALT/SGPT) 23 U/L (12-78) Alkaline Phosphatase 96 U/L (45-117) Troponin I < 0.015 ng/ml (0-0.045) Total Protein 7.3 gm/dl (6.4-8.2) Albumin 3.7 gm/dl (3.4-5.0) Globulin 3.6 gm/dl (2.5-4.0) Albumin/Globulin Ratio 1.0 (0.9-2) Thyroid Stimulating Hormone (TSH) 0.623 uIu/ml (0.300-4.500) Medications Administered Medications (Trade) Dose Ordered Sig/Shelli Route Start Time Stop Time Status Last Admin Dose Admin Miscellaneous Medication (Gi Cocktail) 24 ml NOW STAT PO 06/29/17 11:04 06/29/17 11:06 DC 06/29/17 11:37 24 ML Lidocaine HCl (Viscous Lidocaine 2% Soln) 20 ml STK-MED ONCE .ROUTE 06/29/17 11:32 06/29/17 11:33 DC 06/29/17 11:37 20 ML Al Hydroxide/Mg Hydroxide (Maalox Susp) 30 ml STK-MED ONCE .ROUTE 06/29/17 11:32 06/29/17 11:33 DC 06/29/17 11:37 30 ML Medical Decision Patient was seen and evaluated as above. He presents to us today with a globus sensation in the throat. He has also had chest pain or shortness of breath. He is well on exam. Vital signs stable. Lateral neck x-ray as well as anterior and chest x-ray were obtained. These were found to be negative. CBC negative. D-dimer normal. Patient metabolic panel reveals creatinine slightly elevated at 1.26, I suspect dehydration and he is to rehydrate. Troponin negative. TSH normal. EKG is normal. I suspect he is likely experiencing irritation from may be GERD or other underlying ENT process that is subclinical. There is no evidence of WI, PE, pneumonia or epiglottitis. He is well on exam. He was educated upon management, educated upon worrisome symptoms which to return, had questions prior to discharge, and was discharged home in good condition. The patient was given a GI cocktail without relief. In evaluation and treatment of this patient the following differential diagnoses were entertained: WI, PE, retained foreign body, thyroid abnormality, GERD, among others. Impression Primary Impression: Throat fullness Additional Impression: Chest pain Departure Information Dispostion Home / Self-Care Condition GOOD Referrals Bernice Gant D.O. (PCP) Patient Instructions My [facility] Additional Instructions You were seen in the emergency department for your throat sensation. For pain and fever control, you can use the following [id number] medicines (if >12 yo): - Regular strength (325mg/tab) Tylenol (acetaminophen) 2 tabs every 4-6 hours as needed. Do not exceed 12 tablets in a 24 hour period. Avoid taking more than 3 grams (3000 mg) of Tylenol per day. This includes any other sources of acetaminophen you may take on a regular basis. - Regular strength (200 mg/tab) Advil (ibuprofen) 1-2 tabs every 4-6 hours as needed. Do not exceed a dose of 3200 mg per day. Follow up with your primary care provider in 2-3 days from today's emergency department visit. Please see ENT Problem Qualifiers
[2017-06-29 11:23] LABS: BASO % 0.7 %; BASO ABS # 0.04 K/uL (0-0.2); COMPLETE YES; EOS % 3.8 %; IG% 0.4 %; LYMPH % 21.4 %; LYMPH ABS # 1.19 K/uL (1.2-3.4); MEAN CELL VOLUME 83.6 fL (80-100); MEAN CORPUSCULAR HEMOGLOBIN 28.8 pg (25-34); MEAN CORPUSCULAR HGB CONC 34.4 g/dl (32-36); MEAN PLATELET VOLUME 9.9 fL (7.4-10.4); MONO % 8.3 %; NEUT % 65.4 %; PLATELET COUNT 274 K/uL (130-400); RED BLOOD COUNT 5.38 M/uL (4.7-6.1); WHITE BLOOD COUNT 5.56 K/uL (4.8-10.8)
[2017-06-29 11:30] VITALS: O2SAT 94
[2017-06-29] MEDS ORDERED: ALUMINUM/MAGNESIUM SUSP 30 ML UDC ONE (11:32)
[2017-06-29] MEDS ORDERED: LIDOCAINE HCL 2% VISC SOLN 20 ML UDC ONE (11:32)
--- NOTE | 2017-06-29 11:38 | DIAGNOSTIC IMAGING REPORT ---
CHEST 2 VIEWS ROUTINE HISTORY: 26 years-old Male Cough, chest pain, shortness of breath acute cough COMPARISON: Chest radiograph 02/02/2017 TECHNIQUE: PA and lateral views of the chest FINDINGS: Cardiomediastinal and hilar silhouettes are within normal limits. There is no pneumothorax, pleural effusion, focal airspace consolidation or overt pulmonary edema. Bones of the chest are grossly intact. Remote distal right clavicular fracture. IMPRESSION: No acute cardiopulmonary process. The above report was generated using voice recognition software. It may contain grammatical, syntax or spelling errors. Electronically signed by: Elder Ferrer M.D. 06/29/2017 11:36 AM Dictated Date/Time: 06/29/2017 11:35 AM
[2017-06-29 11:40] LABS: ALT/SGPT 23 U/L (12-78); BLOOD UREA NITROGEN 17 mg/dl (7-18); BUN/CREATININE RATIO 13.8 (10-20); CARBON DIOXIDE 24 mmol/L (21-32); CHLORIDE 109 mmol/L (98-107); CREATININE 1.26 mg/dl (0.60-1.40); GLUCOSE 105 mg/dl (70-99); POTASSIUM 3.6 mmol/L (3.5-5.1); SODIUM 140 mmol/L (136-145)
[2017-06-29] MEDS ORDERED: TPM25 PO (11:40)
[2017-06-29] MEDS ORDERED: CLR10 PO (11:40)
[2017-06-29] MEDS ORDERED: GUAI1SOL3 PO (11:40)
--- NOTE | 2017-06-29 11:41 | DIAGNOSTIC IMAGING REPORT ---
SOFT TISSUE NECK HISTORY: 26 years-old Male Sensation of something stuck in throat, cough, dyspnea acute cough with globus sensation of the neck COMPARISON: Chest radiograph of same day TECHNIQUE: AP and lateral soft tissue neck radiograph FINDINGS: No prevertebral soft tissue swelling. Epiglottis and aryepiglottic folds are unremarkable. No opaque foreign body. The imaged cervical spine appears intact without acute fracture, subluxation or significant degenerative changes. Imaged lung apices are clear. IMPRESSION: Unremarkable soft tissue neck radiographs The above report was generated using voice recognition software. It may contain grammatical, syntax or spelling errors. Electronically signed by: Elder Ferrer M.D. 06/29/2017 11:40 AM Dictated Date/Time: 06/29/2017 11:38 AM
[2017-06-29 11:50] LABS: ALKALINE PHOSPHATASE 96 U/L (45-117); AST/SGOT 16 U/L (15-37); THYROID STIMULATING HORMONE 0.623 uIu/ml (0.300-4.500)
[2017-06-29 13:20] VITALS: BP 112/77; PULSE 89; O2SAT 99
== END 2017-06-29 13:37 | disposition home or self-care (01) ==
LOC: C.EDB 10:36 → C.EDC 13:37
DX: R09.89 Other specified symptoms and signs involving the circulatory and respiratory systems (principal); R07.9 Chest pain, unspecified; J45.909 Unspecified asthma, uncomplicated; Z90.89 Acquired absence of other organs; Z82.49 Family history of ischemic heart disease and other diseases of the circulatory system; Z84.1 Family history of disorders of kidney and ureter

== ENCOUNTER 2017-08-19 12:59 | Emergency (ER) | payer OTHER ==
[~2017-08-19] VITALS: Ht 167.6 cm; Wt 79.7 kg
[~2017-08-19 12:59] MED LIST changes: -ALBINS/ INH; -FLUT1AER5 PO; +GUAI1SOL PO; -LORA10TA44 PO; -PANT40TA2 PO
[2017-08-19 13:09] VITALS: TEMP 36.8; Ht 167.6 cm; Wt 79.7 kg
[2017-08-19] MEDS ORDERED: SODIUM CHLORIDE 0.9% 1000ML 1,000 ML IV STA (14:05)
[2017-08-19] MEDS ORDERED: KETOROLAC TROMETHAMINE 30 MG/ML VIAL IV STA (14:05)
[2017-08-19] MEDS ORDERED: ONDANSETRON INJ 2 MG/ML 2 ML VIAL IV STA (14:05)
--- NOTE | 2017-08-19 14:32 | DIAGNOSTIC IMAGING REPORT ---
CHEST ONE VIEW PORTABLE CLINICAL HISTORY: 26 years-old Male presenting with epigastric pain . TECHNIQUE: Portable upright AP view of the chest was obtained. COMPARISON: 06/29/2017. FINDINGS: Cardiomediastinal silhouette normal. Lungs and pleural spaces clear. Posterior traumatic deformity of the right clavicle. Upper abdomen normal. IMPRESSION: 1. No acute cardiopulmonary disease. Electronically signed by: Thiago Leiva M.D. 08/19/2017 2:31 PM Dictated Date/Time: 08/19/2017 2:30 PM
[2017-08-19 14:33] LABS: BASO % 0.5 %; BASO ABS # 0.03 K/uL (0-0.2); EOS % 2.3 %; EOS ABS # 0.14 K/uL (0-0.5); HEMATOCRIT 45.6 % (42-52); HEMOGLOBIN 16.1 g/dL (14.0-18.0); IG# 0.01 K/uL (0.00-0.02); LYMPH % 34.9 %; LYMPH ABS # 2.12 K/uL (1.2-3.4); MEAN CELL VOLUME 81.6 fL (80-100); MEAN CORPUSCULAR HEMOGLOBIN 28.8 pg (25-34); MEAN CORPUSCULAR HGB CONC 35.3 g/dl (32-36); MEAN PLATELET VOLUME 10.8 fL (7.4-10.4); MONO % 10.5 %; MONO ABS # 0.64 K/uL (0.11-0.59); NEUT % 51.6 %; NEUT ABS # 3.14 K/uL (1.4-6.5); PLATELET COUNT 299 K/uL (130-400); WHITE BLOOD COUNT 6.08 K/uL (4.8-10.8)
[2017-08-19 14:51] LABS: ALBUMIN 4.1 gm/dl (3.4-5.0); ALT/SGPT 37 U/L (12-78); AST/SGOT 27 U/L (15-37); BLOOD UREA NITROGEN 13 mg/dl (7-18); CALCIUM 9.1 mg/dl (8.5-10.1); CARBON DIOXIDE 26 mmol/L (21-32); CREATININE 1.22 mg/dl (0.60-1.40); GLUCOSE 74 mg/dl (70-99); LIPASE 115 U/L (73-393); POTASSIUM 3.5 mmol/L (3.5-5.1); SODIUM 140 mmol/L (136-145)
[2017-08-19 14:53] LABS: ALKALINE PHOSPHATASE 91 U/L (45-117); TOTAL PROTEIN 7.6 gm/dl (6.4-8.2)
--- NOTE | 2017-08-19 15:06 | DIAGNOSTIC IMAGING REPORT ---
GALLBLADDER-ABD LIMITED CLINICAL HISTORY: epigastric abd pain pain. Nausea. TECHNIQUE: Ultrasound COMPARISON STUDY: 07/23/2015 FINDINGS: Normal gallbladder. Common bile duct 4 mm. Liver and pancreas are uniform. Right kidney is negative for hydronephrosis. IMPRESSION: Normal study The above report was generated using voice recognition software. It may contain grammatical, syntax or spelling errors. Electronically signed by: Chip Marcano M.D. 08/19/2017 3:05 PM Dictated Date/Time: 08/19/2017 3:04 PM
[2017-08-19] MEDS ORDERED: GI COCKTAIL PO STA (15:39)
[2017-08-19] MEDS ORDERED: LIDOCAINE HCL 2% VISC SOLN 20 ML UDC ONE (15:49)
[2017-08-19] MEDS ORDERED: ALUMINUM/MAGNESIUM SUSP 30 ML UDC ONE (15:49)
[2017-08-19 16:03] VITALS: BP 111/78; PULSE 73; O2SAT 98
--- NOTE | 2017-08-19 20:54 | EMERGENCY ROOM VISIT NOTE ---
History Report prepared by [employer]: Renetta eBnder Under the Supervision of: Dr. Gregory Sharpe D.O. First contact with patient: 13:48 Chief Complaint: ABDOMINAL PAIN Stated Complaint: PAIN AROUND GALLBLADDER, VOMITING, SWEATS/CHILLS Nursing Triage Summary: Right upper quadrant pain that began today History of Present Illness The patient is a 26 year old male who presents to the Emergency Room with complaints of intermittent abdominal pain starting this morning. The patient states that it came on while he was sleeping and it woke him up. He states that he has had this happened before, but reports that it has been a while. The patient notes that it is worse with movement, eating, and drinking. The patient complains of vomiting and a cough. He notes that he has vomited twice and states that he is just getting over a cold. The patient denies a history of hypertension, hyperlipidemia, nausea, fever, and urinary symptoms. The patient notes his last bowel movement was last night and was normal. Source of History: patient Onset: this morning Position: abdomen Timing: intermittent Modifying Factors (Worsening): eating, drinking, movement Associated Symptoms: + cough, + vomiting, No fevers, No nausea, No urinary symptoms Review of Systems See HPI for pertinent positives & negatives. A total of 10 systems reviewed and were otherwise negative. Past Medical & Surgical Medical Problems: (1) Acute postoperative abdominal pain (2) Appendicitis (3) Asthma (4) Asthma (5) Bronchitis (6) Bronchitis (7) Chest pain (8) Chest pain (9) Costochondritis (10) Foot pain (11) Foot pain (12) Gastritis (13) Hemochromatosis (14) Migraine (15) Nausea & vomiting (16) Nausea vomiting and diarrhea (17) Nausea, vomiting, and diarrhea (18) Open wound of mouth (19) Pneumonia (20) Postoperative abdominal pain (21) Rectal bleeding (22) RUQ abdominal pain (23) Sinus headache (24) Vertigo (25) Vomiting and diarrhea Surgical Problems: (1) History of appendectomy (2) History of appendectomy (3) History of thyroglossal duct cyst removal (4) History of tonsillectomy and adenoidectomy Family History FH: cancer FHx: cholecystectomy Hypertension Kidney stones Social History Smoking Status: Never Smoker Alcohol Use: none Drug Use: none Marital Status: single Housing Status: lives with family Occupation Status: unemployed Current/Historical Medications Scheduled Duloxetine HCl (Cymbalta), 60 MG PO DAILY Fluticasone Propionate (Inhala (Flovent Diskus), 2 PUFFS PO BID Loratadine (Claritin), 10 MG PO DAILY Magnesium Oxide (Mag-Ox), 400 MG PO DAILY Pantoprazole (Pantoprazole Sodium), 40 MG PO DAILY Riboflavin (Vitamin B-2), 400 MG PO DAILY Topiramate (Topiramate), 1 TAB PO DAILY Scheduled PRN Albuterol Sulf (Proventil 0.083% 2.5MG/3ML), 1 VIAL INH Q4 PRN for Wheezing Ondansetron (Ondansetron HCl), 8 MG PO Q6 PRN for Nausea Allergies Coded Allergies: Sumatriptan (Verified Allergy, Severe, GI SYMPTOMS, 08/19/17) Physical Exam Vital Signs Date Time Temp Pulse Resp B/P (MAP) Pulse Ox O2 Delivery O2 Flow Rate FiO2 08/19/17 16:03 73 16 111/78 98 08/19/17 14:36 76 18 124/92 98 Room Air 08/19/17 13:09 36.8 94 20 131/95 96 Room Air Physical Exam GENERAL: Sitting up in bed, alert, disheveled appearing, no distress, non-toxic EYE EXAM: normal conjunctiva. OROPHARYNX: no exudate, no erythema, lips, buccal mucosa, and tongue normal and mucous membranes are moist NECK: supple, no nuchal rigidity, no adenopathy, non-tender LUNGS: Clear to auscultation. Normal chest wall mechanics HEART: no murmurs, S1 normal and S2 normal ABDOMEN: abdomen soft, tenderness to palpation in epigastric/subxiphoid region, normo-active bowel sounds, no masses, no rebound or guarding. BACK: Back is symmetrical on inspection and there is no deformity, no midline tenderness, no CVA tenderness. SKIN: no rashes and no bruising UPPER EXTREMITIES: upper extremities are grossly normal. LOWER EXTREMITIES: No pitting edema. NEURO EXAM: Normal sensorium, cranial nerves II-XII grossly intact, normal speech, no gross weakness of arms, no gross weakness of legs. Medical Decision & Procedures ER Provider Diagnostic Interpretation: Radiology results as stated below per my review and the radiologist's interpretation: CHEST ONE VIEW PORTABLE CLINICAL HISTORY: 26 years-old Male presenting with epigastric pain . TECHNIQUE: Portable upright AP view of the chest was obtained. COMPARISON: 06/29/2017. FINDINGS: Cardiomediastinal silhouette normal. Lungs and pleural spaces clear. Posterior traumatic deformity of the right clavicle. Upper abdomen normal. IMPRESSION: 1. No acute cardiopulmonary disease. Electronically signed by: Thiago Leiva M.D. 08/19/2017 2:31 PM Dictated Date/Time: 08/19/2017 2:30 PM GALLBLADDER-ABD LIMITED CLINICAL HISTORY: epigastric abd pain pain. Nausea. TECHNIQUE: Ultrasound COMPARISON STUDY: 07/23/2015 FINDINGS: Normal gallbladder. Common bile duct 4 mm. Liver and pancreas are uniform. Right kidney is negative for hydronephrosis. IMPRESSION: Normal study The above report was generated using voice recognition software. It may contain grammatical, syntax or spelling errors. Electronically signed by: Chip Marcano M.D. 08/19/2017 3:05 PM Dictated Date/Time: 08/19/2017 3:04 PM Laboratory Results 08/19/17 13:47 Red Blood Count 5.59, Mean Corpuscular Volume 81.6, Mean Corpuscular Hemoglobin 28.8, Mean Corpuscular Hemoglobin Concent 35.3, Mean Platelet Volume 10.8, Neutrophils (%) (Auto) 51.6, Lymphocytes (%) (Auto) 34.9, Monocytes (%) (Auto) 10.5, Eosinophils (%) (Auto) 2.3, Basophils (%) (Auto) 0.5, Neutrophils # (Auto ) 3.14, Lymphocytes # (Auto) 2.12, Monocytes # (Auto) 0.64, Eosinophils # (Auto ) 0.14, Basophils # (Auto) 0.03 08/19/17 13:47 Test 08/19/17 13:47 08/19/17 13:50 White Blood Count 6.08 K/uL (4.8-10.8) Red Blood Count 5.59 M/uL (4.7-6.1) Hemoglobin 16.1 g/dL (14.0-18.0) Hematocrit 45.6 % (42-52) Mean Corpuscular Volume 81.6 fL (80-100) Mean Corpuscular Hemoglobin 28.8 pg (25-34) Mean Corpuscular Hemoglobin Concent 35.3 g/dl (32-36) Platelet Count 299 K/uL (130-400) Mean Platelet Volume 10.8 fL (7.4-10.4) Neutrophils (%) (Auto) 51.6 % Lymphocytes (%) (Auto) 34.9 % Monocytes (%) (Auto) 10.5 % Eosinophils (%) (Auto) 2.3 % Basophils (%) (Auto) 0.5 % Neutrophils # (Auto) 3.14 K/uL (1.4-6.5) Lymphocytes # (Auto) 2.12 K/uL (1.2-3.4) Monocytes # (Auto) 0.64 K/uL (0.11-0.59) Eosinophils # (Auto) 0.14 K/uL (0-0.5) Basophils # (Auto) 0.03 K/uL (0-0.2) RDW Standard Deviation 39.0 fL (36.4-46.3) RDW Coefficient of Variation 13.0 % (11.5-14.5) Immature Granulocyte % (Auto) 0.2 % Immature Granulocyte # (Auto) 0.01 K/uL (0.00-0.02) Anion Gap 7.0 mmol/L (3-11) Est Creatinine Clear Calc Drug Dose 91.8 ml/min Estimated GFR () 94.9 Estimated GFR (Non- 81.9 BUN/Creatinine Ratio 10.6 (10-20) Calcium Level 9.1 mg/dl (8.5-10.1) Total Bilirubin 0.4 mg/dl (0.2-1) Direct Bilirubin < 0.1 mg/dl (0-0.2) Aspartate Amino Transf (AST/SGOT) 27 U/L (15-37) Alanine Aminotransferase (ALT/SGPT) 37 U/L (12-78) Alkaline Phosphatase 91 U/L (45-117) Total Protein 7.6 gm/dl (6.4-8.2) Albumin 4.1 gm/dl (3.4-5.0) Lipase 115 U/L (73-393) Urine Color DK YELLOW Urine Appearance TURBID (CLEAR) Urine pH 5.0 (4.5-7.5) Urine Specific [place] 1.025 (1.000-1.030) Urine Protein NEG (NEG) Urine Glucose (UA) TRACE (NEG) Urine Ketones TRACE (NEG) Urine Occult Blood NEG (NEG) Urine Nitrite NEG (NEG) Urine Bilirubin NEG (NEG) Urine Urobilinogen NEG (NEG) Urine Leukocyte Esterase NEG (NEG) Urine WBC (Auto) 1-5 /hpf (0-5) Urine RBC (Auto) 0-4 /hpf (0-4) Urine Hyaline Casts (Auto) 1-5 /lpf (0-5) Urine Epithelial Cells (Auto) 0-5 /lpf (0-5) Urine Bacteria (Auto) NEG (NEG) Laboratory results per my review. Medications Administered Medications (Trade) Dose Ordered Sig/Shelli Route Start Time Stop Time Status Last Admin Dose Admin Ketorolac Tromethamine (Toradol Inj) 30 mg NOW STAT IV 08/19/17 14:05 08/19/17 14:06 DC 08/19/17 14:23 30 MG Ondansetron HCl (Zofran Inj) 4 mg NOW STAT IV 08/19/17 14:05 08/19/17 14:06 DC 08/19/17 14:23 4 MG Sodium Chloride 1,000 ml @ 999 mls/hr Q1H1M STAT IV 08/19/17 14:05 08/19/17 15:05 DC 08/19/17 14:22 999 MLS/HR Al Hydroxide/Mg Hydroxide (Maalox Susp) 30 ml STK-MED ONCE .ROUTE 08/19/17 15:49 08/19/17 15:50 DC 08/19/17 16:03 30 ML Lidocaine HCl (Viscous Lidocaine 2% Soln) 20 ml STK-MED ONCE .ROUTE 08/19/17 15:49 08/19/17 15:50 DC 08/19/17 16:03 20 ML ECG Indication: abdominal pain Rate (beats per minute): 70 Rhythm: sinus rhythm Findings: no acute ischemic change, no ectopy, other (Normal axis) ED Course ED COURSE: Vital signs were reviewed and showed normal vitals. The patients medical record was reviewed The above diagnostic studies were performed and reviewed. ED treatments and interventions as stated above. 1401: The patient was evaluated in room A12B. A complete history and physical examination was performed. 1405: Ordered NSS 1000 ml @ 999 mls/hr IV, Zofran Inj 4 mg IV, Toradol Inj 30 mg IV. 1537: Upon reevaluation, the patient is resting comfortably.I discussed my findings with the patient and he understands and agrees with the treatment plan. Based on the patients age, coexisting illnesses, exam and lab findings the decision to treat as an outpatient was made. The patient remained stable while under my care. The patient appeared well at the time of discharge. 1539: Ordered GI Cocktail 24 ml PO. Medical Decision Differential diagnoses includes but is not limited to gastritis, peptic ulcer disease, GERD, gallbladder disease, pancreatitis, small bowel obstruction, acute coronary syndrome, pericarditis, ischemic bowel, irritable bowel disease, irritable bowel syndrome, appendicitis, diverticulitis, malignancy, hernia, urinary tract infection, torsion, perforation, trauma, infectious. Patient is a 26-year-old who presents to ER for abdominal pain which started this morning. Pain is located in the right upper quadrant/epigastric region. It is reproducible along the epigastrium and chest wall. I do favor this likely muscular. No pleuritic pain to suggest PEs. CBC all BMP, LFTs, bilirubin lipase is unremarkable. UA was negative. Chest x-ray and ultrasound right upper quadrant was unremarkable. He was given fluids, Zofran pain meds a GI cocktail. He felt slightly better. Family was updated at bedside. I favor this likely muscle skeletal versed gastritis. Discharged take Pepcid follow-up with PCP. Discussed with Pt concerning signs and symptoms to watch out for. Pt was instructed to follow up with their PCP and discussed with the patient their option to return to the ED at anytime for persistent or worsening symptoms. The appropriate anticipatory guidance and out-patient management, including indications for return to the emergency department, were explained at length to the patient and understood. Medication Reconcilliation Current Medication List: was personally reviewed by me Blood Pressure Screening Patient's blood pressure: Normal blood pressure Blood pressure disposition: Did not require urgent referral Impression Primary Impression: Epigastric abdominal pain Scribe Attestation The scribe's documentation has been prepared under my direction and personally reviewed by me in its entirety. I confirm that the note above accurately reflects all work, treatment, procedures, and medical decision making performed by me. Departure Information Dispostion Home / Self-Care Referrals Bernice Gant D.O. (PCP) Forms HOME CARE DOCUMENTATION FORM, IMPORTANT VISIT INFORMATION Patient Instructions My [facility] Additional Instructions Please follow up with your primary care doctor with in the next 24 hours. Any worsening of your symptoms, please return to the ED immediately. This includes any fevers greater than 100.4, worsening pain, chest pain, shortness breath, persistent nausea, vomiting, unable to eat or drink, or any other concerning signs or symptoms from your standpoint. Please take Tylenol as needed for pain. Please take Pepcid 20 mg daily as needed for pain which is [id number].
[2018-01-18] MEDS ORDERED: TPM25 PO (11:40)
[2018-01-18] MEDS ORDERED: CLR10 PO (11:40)
[2018-01-18] MEDS ORDERED: ALBINS/ INH (14:43)
[2018-01-18] MEDS ORDERED: MAGN400T7 PO (22:30)
[2018-01-18] MEDS ORDERED: CYM60 PO (22:30)
[2018-01-18] MEDS ORDERED: KETO10TA PO (22:30)
[2018-01-18] MEDS ORDERED: RIBO1TAB4 PO (22:31)
[2018-01-18] MEDS ORDERED: CEPH500C PO (23:40)
[2018-01-18] MEDS ORDERED: PANT40TA2 PO (23:55)
[2018-01-18] MEDS ORDERED: FLUT1AER5 INH (23:55)
== END 2017-08-19 16:05 | disposition home or self-care (01) ==
LOC: C.EDB 12:59 → C.EDA 16:05
DX: R10.13 Epigastric pain (principal); J45.909 Unspecified asthma, uncomplicated; Z87.01 Personal history of pneumonia (recurrent); Z80.9 Family history of malignant neoplasm, unspecified; Z82.49 Family history of ischemic heart disease and other diseases of the circulatory system; Z84.1 Family history of disorders of kidney and ureter; Z79.899 Other long term (current) drug therapy

== ENCOUNTER 2017-11-25 21:51 | Emergency (ER) | payer OTHER ==
[~2017-11-25] VITALS: Ht 167.6 cm; Wt 84.4 kg
[~2017-11-25 21:51] MED LIST changes: +ALBINS/ INH; +CLR10 PO; +FLUT1AER5 PO; -GUAI1SOL PO; +PANT40TA2 PO; +TPM25 PO
[2017-11-25 21:56] VITALS: BP 130/87; TEMP 36.3; Ht 167.6 cm; Wt 84.4 kg
[2017-11-25] MEDS ORDERED: PROPARACAINE HCL 0.5% OP SOLN 15 ML BTL OP STA (22:17)
--- NOTE | 2017-11-25 23:23 | EMERGENCY ROOM VISIT NOTE ---
History First contact with patient: 22:00 Chief Complaint: EYE ASSESSMENT Stated Complaint: FEELS LIKE SOMETHING IS IN RT EYE History of Present Illness The patient is a 27 year old male who presents to the Emergency Room via private vehicle accompanied by family with complaints of "feels like something in right eye". The patient states that he has been experiencing a foreign body sensation in the right eye since Friday. He states that he was at home when this occurred. He feels as though something is jabbing his right eye. He was seen by the family doctor who provided him antibiotic eyedrops. He just began these. Today they seem to help by decreasing swelling and redness. He is tried to flush this with artificial tears with minimal relief. He notes that he has been rubbing the right eye a lot secondary to comfort. There is been no drainage, change in vision or blurred vision. No fevers, chills, photophobia, or eye pain with EOMs. He denies any past medical history of eye surgery or injury. He has not seen an day haul or farm charter bus driver. He does note that he was working with perhaps [employer] this past week. Review of Systems A complete 6-point Review of Systems was discussed with the patient, with pertinent positives and negatives listed in the History of Present Illness. All remaining Review of Systems questions can be considered negative unless otherwise specified. Past Medical/Surgical History Medical Problems: (1) Acute postoperative abdominal pain (2) Appendicitis (3) Asthma (4) Asthma (5) Bronchitis (6) Bronchitis (7) Chest pain (8) Chest pain (9) Costochondritis (10) Foot pain (11) Foot pain (12) Gastritis (13) Hemochromatosis (14) Migraine (15) Nausea & vomiting (16) Nausea vomiting and diarrhea (17) Nausea, vomiting, and diarrhea (18) Open wound of mouth (19) Pneumonia (20) Postoperative abdominal pain (21) Rectal bleeding (22) RUQ abdominal pain (23) Sinus headache (24) Vertigo (25) Vomiting and diarrhea Surgical Problems: (1) History of appendectomy (2) History of appendectomy (3) History of thyroglossal duct cyst removal (4) History of tonsillectomy and adenoidectomy Family History FH: cancer FHx: cholecystectomy Hypertension Kidney stones Social History Smoking Status: Never Smoker Alcohol Use: none Drug Use: none Marital Status: single Housing Status: lives with family Occupation Status: unemployed Current/Historical Medications Scheduled Duloxetine HCl (Cymbalta), 60 MG PO DAILY Fluticasone Propionate (Inhala (Flovent Diskus), 2 PUFFS PO BID Loratadine (Claritin), 10 MG PO DAILY Magnesium Oxide (Mag-Ox), 400 MG PO DAILY Pantoprazole (Pantoprazole Sodium), 40 MG PO DAILY Riboflavin (Vitamin B-2), 400 MG PO DAILY Topiramate (Topiramate), 1 TAB PO DAILY Scheduled PRN Albuterol Sulf (Proventil 0.083% 2.5MG/3ML), 1 VIAL INH Q4 PRN for Wheezing Ondansetron (Ondansetron HCl), 8 MG PO Q6 PRN for Nausea Physical Exam Vital Signs Date Time Temp Pulse Resp B/P (MAP) Pulse Ox O2 Delivery O2 Flow Rate FiO2 11/25/17 23:28 97 96 11/25/17 21:56 36.3 104 20 130/87 95 Room Air Right Eye Acuity: 20/30 W/O CORRECTIVE LENSES Left Eye Acuity: 20/50 W/O CORRECTIVE LENSES Physical Exam VITAL SIGNS - Vital signs and nursing notes were reviewed. Stable. GENERAL -27-year-old male appearing his stated age who is in no acute distress. Communicates well with provider and answers questions appropriately. SKIN - Without rashes. No meningeal or petechial rash. The skin overlying the right eye is unremarkable. There is perhaps minimal erythema but there is no edema or evidence of periorbital involvement. No stye externally. Negative Yi sign. HEAD - NC/AT. EYES - PERRL with EOMI bilaterally. Sclera anicteric. Please see further exam noted below. The eyelids were everted and on the superior eyelid at the medial margin there is evidence of small hordeolum/prominent anatomy. EARS - No deformities of external structures noted on gross examination bilaterally. No pain elicited with palpation of the tragus bilaterally. External auditory canals without discharge or otorrhea. Tympanic membranes pearly hale without retraction or bulging. No fluid or purulent material visualized behind the TM. Handle of malleus, umbo, cone of light, pars tensa/ flaccid all easily visualized. NOSE - Midline and without cyanosis. No epistaxis or purulent drainage noted. Septum midline without deviation or septal hematoma noted. MOUTH/OROPHARYNX - Without perioral cyanosis. Buccal mucosa pink and moist and without leukoplakia. Tongue midline with equal elevation of palate bilaterally. No tonsillar hypertrophy, erythema, or exudates noted. Fair dentition noted. Slit Lamp Examination was performed of the right eye(s). Alcaine drops were applied to the affected eye(s) for proper anesthetization. The affected eye(s) were stained with Fluorescein stain to precipitate adequate visualization of any conjunctival/scleral excoriations or ulcers. The patient's face was comfortably rested on the chin guard of the slit lamp apparatus. The lights were dimmed and the affected eye(s) were thoroughly examined under microscopy using the blue light. No uptake was present in the right eye. Additionally, the eye(s) were examined under microscopy using the regular light. Close examination revealed an unremarkable eye exam. Patient tolerated the procedure well and no complications were met. An Automated Tonometer was utilized to obtain bilateral orbital pressures. Both the left and right eyes were less than [id number]. Medical Decision & Procedures Medications Administered Medications (Trade) Dose Ordered Sig/Shelli Route Start Time Stop Time Status Last Admin Dose Admin Proparacaine HCl (Alcaine 0.5% Oph Soln) 2 drops NOW STAT OP 11/25/17 22:17 11/25/17 22:18 DC 11/25/17 22:25 2 DROPS Medical Decision Patient was seen and evaluated as above in room D4. Review was performed of nursing notes and vital signs. After obtaining a thorough history and physical examination the above work up was performed. He presents to us today with right eye foreign body sensation. He is nontoxic on exam. No evidence of cellulitis, orbital cellulitis or periorbital cellulitis. It is likely that he is either experiencing a small hordeolum on the internal superior medial eyelid or he had a foreign body and it was rinsed out now it is just causing further irritation likely secondary to his persistent rubbing of the eye. He is already on antibiotic drops from the family doctor which he just began. He does note via history that he did rinse his eyes out and a small black nikki came from the eye. I question if this was perhaps a foreign body which he already removed. Regardless, there is no corneal irritation evident on exam or emergent process identified. I do recommend he continues the antibiotic eyedrops as further management for the prevention of infection in the right eye , as well as following up with ophthalmology. Phone number provided. He is also to use warm compresses in the event that he is experiencing a small stye. The patient was educated upon management, had questions answered prior to discharge, and was discharged home in good condition. In the evaluation and treatment of this patient, the following differential diagnoses were considered: Corneal Abrasion, Conjunctivitis, Eye Contusion, Globe Injury, Orbital Floor Injury (Blowout Fracture), Corneal Ulcer, Keratitis , Herpes Zoster Opthalmic, Blepharitis, Orbital Cellulitis, Iritis, Scleritis/ Episcleritis, Uveitis, Temporal Arteritis, Subconjunctival Hemorrhage. Impression Primary Impression: Discomfort of right eye Departure Information Dispostion Home / Self-Care Condition GOOD Referrals Bernice Gant D.O. (PCP) Christian Dorman D.O. Patient Instructions My [facility] Additional Instructions You have been treated in the Emergency Department for R eye discomfort. You have received pain medicine in the emergency department which impairs your ability to operate a vehicle. It is illegal for you to drive after receiving these medicines. You may continue the antibiotic eyedrop. Please apply warm compress every couple hours to the eye. Please not use too hot of water. For pain control, you can use the following [id number] medicines (if >12 yo): - Regular strength (325mg/tab) Tylenol (acetaminophen) 2 tabs every 4-6 hours as needed. Do not exceed 12 tablets in a 24 hour period. Avoid taking more than 3 grams (3000 mg) of Tylenol per day. This includes any other sources of acetaminophen you may take on a regular basis. - Regular strength (200 mg/tab) Advil (ibuprofen) 1-2 tabs every 4-6 hours as needed. Do not exceed a dose of 3200 mg per day. Avoid rubbing your eyes for the next few days as this can cause irritation. Wear sunglasses when outside to help minimize your pain. You should relax in a quiet, dark room to help minimize your symptoms. Please call eye doctor for follow up. Dr. Dorman. Return to the emergency department if you develop the following symptoms despite treatment course outlined above: blurry vision, loss of vision, fever, intractable pain, increased redness, swelling, or purulent discharge.
[2017-11-25 23:28] VITALS: PULSE 97; O2SAT 96
== END 2017-11-25 23:28 | disposition home or self-care (01) ==
LOC: C.EDB 21:52 → C.EDD 23:28
DX: H57.11 Ocular pain, right eye (principal); J45.909 Unspecified asthma, uncomplicated; G43.909 Migraine, unspecified, not intractable, without status migrainosus; Z79.899 Other long term (current) drug therapy

== ENCOUNTER 2018-03-23 15:47 | Emergency (ER) | payer OTHER ==
[~2018-03-23] VITALS: Ht 167.6 cm; Wt 83.0 kg
[~2018-03-23 15:47] MED LIST changes: -CYM/60 PO; +CYM60 PO; +FLUT1AER5 INH; -FLUT1AER5 PO; +KETO10TA PO; -MAGN400T6 PO; +MAGN400T7 PO; -ONDA-63 PO; +RIBO1TAB4 PO; -VITB2100 PO
[2018-03-23 16:02] VITALS: TEMP 37.1; Ht 167.6 cm; Wt 83.0 kg
[2018-03-23] MEDS ORDERED: ONDANSETRON INJ 2 MG/ML 2 ML VIAL IV STA (18:09)
[2018-03-23] MEDS ORDERED: SODIUM CHLORIDE 0.9% 1000ML 2,000 ML IV STA (18:09)
[2018-03-23] MEDS ORDERED: GI COCKTAIL PO STA (18:10)
[2018-03-23] MEDS ORDERED: ALUMINUM/MAGNESIUM SUSP 30 ML UDC ONE (18:18)
[2018-03-23] MEDS ORDERED: LIDOCAINE HCL 2% VISC SOLN 20 ML UDC ONE (18:18)
[2018-03-23 18:43] LABS: BASO % 0.8 %; BASO ABS # 0.06 K/uL (0-0.2); EOS % 1.1 %; EOS ABS # 0.08 K/uL (0-0.5); HEMOGLOBIN 16.4 g/dL (14.0-18.0); IG# 0.02 K/uL (0.00-0.02); LYMPH % 24.5 %; LYMPH ABS # 1.73 K/uL (1.2-3.4); MEAN CELL VOLUME 82.5 fL (80-100); MEAN CORPUSCULAR HEMOGLOBIN 28.8 pg (25-34); MEAN CORPUSCULAR HGB CONC 34.9 g/dl (32-36); MEAN PLATELET VOLUME 10.9 fL (7.4-10.4); MONO % 6.5 %; MONO ABS # 0.46 K/uL (0.11-0.59); NEUT % 66.8 %; NEUT ABS # 4.71 K/uL (1.4-6.5); PLATELET COUNT 247 K/uL (130-400); RED CELL DISTRIBUTION WIDTH CV 13.1 % (11.5-14.5); RED CELL DISTRIBUTION WIDTH SD 39.1 fL (36.4-46.3); WHITE BLOOD COUNT 7.06 K/uL (4.8-10.8)
[2018-03-23 19:15] LABS: ALBUMIN 4.6 gm/dl (3.4-5.0); CALCIUM 9.1 mg/dl (8.5-10.1); CREATININE 1.45 mg/dl (0.60-1.40); TOTAL PROTEIN 7.8 gm/dl (6.4-8.2)
[2018-03-23] MEDS ORDERED: VNTHFA/IN INH (19:25)
[2018-03-23] MEDS ORDERED: RIBO100C PO (19:36)
--- NOTE | 2018-03-23 20:09 | DIAGNOSTIC IMAGING REPORT ---
GALLBLADDER-ABD LIMITED CLINICAL HISTORY: 27 years-old Male presenting with ruq abd pain. TECHNIQUE: Real-time grayscale and limited color Doppler ultrasound imaging of the abdomen limited to the right upper quadrant was performed. COMPARISON: 08/19/2017. FINDINGS: Pancreas: Visualized portions of the pancreatic head and body normal. Liver: Normal echogenicity and echotexture. The liver measures 15.0 cm in maximal sagittal dimension. No sonographic evidence of hepatic mass. Main portal vein patent with normal directional flow. Biliary: No intrahepatic biliary ductal dilatation. Common bile duct measures up to 3 mm in diameter. Gallbladder: Limited gallbladder sludge. No evidence of gallstones, gallbladder wall thickening, gallbladder distention, or pericholecystic fluid or inflammatory change. Sonographic Servin's sign negative. Right kidney: Normal in appearance without evidence of hydronephrosis. Ascites: None. Other: None. IMPRESSION: Limited gallbladder sludge. No cholelithiasis or biliary ductal dilatation. Electronically signed by: Thiago Leiva M.D. 03/23/2018 8:08 PM Dictated Date/Time: 03/23/2018 8:06 PM
[2018-03-23 20:28] LABS: POTASSIUM 3.9 mmol/L (3.5-5.1)
[2018-03-23 20:29] VITALS: BP 124/88; PULSE 81; O2SAT 99
[2018-03-23] MEDS ORDERED: SUCR1TAB29 PO (20:46)
--- NOTE | 2018-03-23 20:46 | DIAGNOSTIC IMAGING REPORT ---
CHEST ONE VIEW PORTABLE CLINICAL HISTORY: 27 years-old Male presenting with ruq . TECHNIQUE: Portable upright AP view of the chest was obtained. COMPARISON: 08/19/2017. FINDINGS: Cardiomediastinal silhouette normal. No focal opacity. No large effusion or pneumothorax. Post traumatic deformity of the right clavicle. Upper abdomen normal. IMPRESSION: 1. No acute cardiopulmonary disease. Electronically signed by: Thiago Leiva M.D. 03/23/2018 8:45 PM Dictated Date/Time: 03/23/2018 8:44 PM
--- NOTE | 2018-03-24 00:14 | EMERGENCY ROOM VISIT NOTE ---
History Report prepared by [employer]: Sheridan Dietrich Under the Supervision of: Dr. Gregory Sharpe D.O. First contact with patient: 18:05 Chief Complaint: ABDOMINAL PAIN Stated Complaint: PAIN AROUND GALLBLADDER,NAUSEA History of Present Illness The patient is a 27 year old male who presents to the Emergency Room with complaints of constant, burning abdominal pain beginning 3 days ago. He notes his pain is an 8/10 in severity, and that eating and drinking worsens his pain. The patient reports he has acid reflux, but this pain is worse than that usually feels. He states he takes Pantoprazole and has not missed any doses. The patient reports he does not feel like anything is stuck in his throat. He notes some nausea and denies any vomiting. The patient notes his last bowel movement was today, and he had no blood in his stool. He states he had his appendix removed but still has gallbladder. Source of History: patient Onset: 3 days ago Position: abdomen Symptom Intensity: 8/10 Quality: burning Timing: constant Modifying Factors (Worsening): eating, drinking Associated Symptoms: + nausea, No vomiting, No melena Note: Denies: feeling like something is stuck in his throat Review of Systems See HPI for pertinent positives & negatives. A total of 10 systems reviewed and were otherwise negative. Past Medical & Surgical Medical Problems: (1) Acute postoperative abdominal pain (2) Appendicitis (3) Asthma (4) Asthma (5) Bronchitis (6) Bronchitis (7) Chest pain (8) Chest pain (9) Costochondritis (10) Foot pain (11) Foot pain (12) Gastritis (13) Hemochromatosis (14) Migraine (15) Nausea & vomiting (16) Nausea vomiting and diarrhea (17) Nausea, vomiting, and diarrhea (18) Open wound of mouth (19) Pneumonia (20) Postoperative abdominal pain (21) Rectal bleeding (22) RUQ abdominal pain (23) Sinus headache (24) Vertigo (25) Vomiting and diarrhea Surgical Problems: (1) History of appendectomy (2) History of appendectomy (3) History of thyroglossal duct cyst removal (4) History of tonsillectomy and adenoidectomy Family History FH: cancer FHx: cholecystectomy Hypertension Kidney stones Social History Smoking Status: Never Smoker Alcohol Use: none Drug Use: none Marital Status: single Housing Status: lives with family Occupation Status: unemployed Current/Historical Medications Scheduled Duloxetine HCl (Duloxetine HCl), 60 MG PO DAILY Fluticasone Propionate (Inhala (Flovent Diskus), 2 PUFFS INH BID Magnesium Oxide (Mg Supplement (Magnesium Oxide), 241.3 MG PO DAILY Pantoprazole (Pantoprazole Sodium), 40 MG PO DAILY Riboflavin (Riboflavin), 100 MG PO DAILY Sucralfate (Carafate), 1 GM PO TID Topiramate (Topiramate), 25 MG PO TID Scheduled PRN Albuterol Hfa (Ventolin Hfa), 2 PUFFS INH Q6H PRN for SOB/Wheezing Albuterol Sulf (Proventil 0.083% 2.5MG/3ML), 1 VIAL INH Q4H PRN for Wheezing Ketorolac Tromethamine (Toradol), 10 MG PO UD PRN for Migraine Loratadine (Claritin), 10 MG PO DAILY PRN for Allergy Symptoms Allergies Coded Allergies: Sumatriptan (Verified Allergy, Severe, GI SYMPTOMS, 11/25/17) Physical Exam Vital Signs Date Time Temp Pulse Resp B/P (MAP) Pulse Ox O2 Delivery O2 Flow Rate FiO2 03/23/18 20:29 81 16 124/88 99 Room Air 03/23/18 18:53 72 18 124/86 97 Room Air 03/23/18 16:02 37.1 110 17 121/81 96 Room Air Physical Exam GENERAL: Sitting up in bed, alert, well appearing, well nourished, no distress, non-toxic, disheveled. EYE EXAM: normal conjunctiva. OROPHARYNX: no exudate, no erythema, lips, buccal mucosa, and tongue normal and mucous membranes are moist NECK: supple, no nuchal rigidity, no adenopathy, non-tender LUNGS: Clear to auscultation. Normal chest wall mechanics HEART: no murmurs, S1 normal and S2 normal ABDOMEN: abdomen soft, non-tender, normo-active bowel sounds, no masses, no rebound or guarding. Tenderness to palpation in epigastric region. BACK: Back is symmetrical on inspection and there is no deformity, no midline tenderness, no CVA tenderness. SKIN: no rashes and no bruising UPPER EXTREMITIES: upper extremities are grossly normal. LOWER EXTREMITIES: No pitting edema. NEURO EXAM: Normal sensorium, cranial nerves II-XII grossly intact, normal speech, no gross weakness of arms, no gross weakness of legs. Medical Decision & Procedures ER Provider Diagnostic Interpretation: Radiology results as stated below per my review and the radiologist's interpretation: GALLBLADDER-ABD LIMITED CLINICAL HISTORY: 27 years-old Male presenting with ruq abd pain. TECHNIQUE: Real-time grayscale and limited color Doppler ultrasound imaging of the abdomen limited to the right upper quadrant was performed. COMPARISON: 08/19/2017. FINDINGS: Pancreas: Visualized portions of the pancreatic head and body normal. Liver: Normal echogenicity and echotexture. The liver measures 15.0 cm in maximal sagittal dimension. No sonographic evidence of hepatic mass. Main portal vein patent with normal directional flow. Biliary: No intrahepatic biliary ductal dilatation. Common bile duct measures up to 3 mm in diameter. Gallbladder: Limited gallbladder sludge. No evidence of gallstones, gallbladder wall thickening, gallbladder distention, or pericholecystic fluid or inflammatory change. Sonographic Servin's sign negative. Right kidney: Normal in appearance without evidence of hydronephrosis. Ascites: None. Other: None. IMPRESSION: Limited gallbladder sludge. No cholelithiasis or biliary ductal dilatation. Electronically signed by: Thiago Leiva M.D. 03/23/2018 8:08 PM Dictated Date/Time: 03/23/2018 8:06 PM CHEST ONE VIEW PORTABLE CLINICAL HISTORY: 27 years-old Male presenting with ruq . TECHNIQUE: Portable upright AP view of the chest was obtained. COMPARISON: 08/19/2017. FINDINGS: Cardiomediastinal silhouette normal. No focal opacity. No large effusion or pneumothorax. Post traumatic deformity of the right clavicle. Upper abdomen normal. IMPRESSION: 1. No acute cardiopulmonary disease. Electronically signed by: Thiago Leiva M.D. 03/23/2018 8:45 PM Dictated Date/Time: 03/23/2018 8:44 PM Laboratory Results 03/23/18 18:30 Red Blood Count 5.70, Mean Corpuscular Volume 82.5, Mean Corpuscular Hemoglobin 28.8, Mean Corpuscular Hemoglobin Concent 34.9, Mean Platelet Volume 10.9, Neutrophils (%) (Auto) 66.8, Lymphocytes (%) (Auto) 24.5, Monocytes (%) (Auto) 6.5, Eosinophils (%) (Auto) 1.1, Basophils (%) (Auto) 0.8, Neutrophils # (Auto) 4.71, Lymphocytes # (Auto) 1.73, Monocytes # (Auto) 0.46, Eosinophils # (Auto) 0.08, Basophils # (Auto) 0.06 03/23/18 18:30 03/23/18 19:45 Test 03/23/18 18:30 03/23/18 18:45 03/23/18 19:45 White Blood Count 7.06 K/uL (4.8-10.8) Red Blood Count 5.70 M/uL (4.7-6.1) Hemoglobin 16.4 g/dL (14.0-18.0) Hematocrit 47.0 % (42-52) Mean Corpuscular Volume 82.5 fL (80-100) Mean Corpuscular Hemoglobin 28.8 pg (25-34) Mean Corpuscular Hemoglobin Concent 34.9 g/dl (32-36) Platelet Count 247 K/uL (130-400) Mean Platelet Volume 10.9 fL (7.4-10.4) Neutrophils (%) (Auto) 66.8 % Lymphocytes (%) (Auto) 24.5 % Monocytes (%) (Auto) 6.5 % Eosinophils (%) (Auto) 1.1 % Basophils (%) (Auto) 0.8 % Neutrophils # (Auto) 4.71 K/uL (1.4-6.5) Lymphocytes # (Auto) 1.73 K/uL (1.2-3.4) Monocytes # (Auto) 0.46 K/uL (0.11-0.59) Eosinophils # (Auto) 0.08 K/uL (0-0.5) Basophils # (Auto) 0.06 K/uL (0-0.2) RDW Standard Deviation 39.1 fL (36.4-46.3) RDW Coefficient of Variation 13.1 % (11.5-14.5) Immature Granulocyte % (Auto) 0.3 % Immature Granulocyte # (Auto) 0.02 K/uL (0.00-0.02) Anion Gap 7.0 mmol/L (3-11) Est Creatinine Clear Calc Drug Dose 78.0 ml/min Estimated GFR () 76.5 Estimated GFR (Non- 66.0 BUN/Creatinine Ratio 15.0 (10-20) Calcium Level 9.1 mg/dl (8.5-10.1) Total Bilirubin 0.6 mg/dl (0.2-1) Alanine Aminotransferase (ALT/SGPT) 28 U/L (12-78) Alkaline Phosphatase 92 U/L (45-117) Total Protein 7.8 gm/dl (6.4-8.2) Albumin 4.6 gm/dl (3.4-5.0) Lipase 109 U/L (73-393) Urine Color DK YELLOW Urine Appearance CLEAR (CLEAR) Urine pH 5.0 (4.5-7.5) Urine Specific Cutler 1.023 (1.000-1.030) Urine Protein NEG (NEG) Urine Glucose (UA) NEG (NEG) Urine Ketones TRACE (NEG) Urine Occult Blood NEG (NEG) Urine Nitrite NEG (NEG) Urine Bilirubin NEG (NEG) Urine Urobilinogen NEG (NEG) Urine Leukocyte Esterase NEG (NEG) Urine WBC (Auto) 1-5 /hpf (0-5) Urine RBC (Auto) 0-4 /hpf (0-4) Urine Hyaline Casts (Auto) 0 /lpf (0-5) Urine Epithelial Cells (Auto) 10-20 /lpf (0-5) Urine Bacteria (Auto) NEG (NEG) Direct Bilirubin 0.1 mg/dl (0-0.2) Aspartate Amino Transf (AST/SGOT) 16 U/L (15-37) Laboratory results per my review. Medications Administered Medications (Trade) Dose Ordered Sig/Shelli Route Start Time Stop Time Status Last Admin Dose Admin Sodium Chloride 2,000 ml @ 999 mls/hr Q2H1M STAT IV 03/23/18 18:09 03/23/18 20:09 DC 03/23/18 18:50 999 MLS/HR Ondansetron HCl (Zofran Inj) 4 mg NOW STAT IV 03/23/18 18:09 03/23/18 18:11 DC 03/23/18 18:50 4 MG Lidocaine HCl (Viscous Lidocaine 2% Soln) 20 ml STK-MED ONCE .ROUTE 03/23/18 18:18 03/23/18 18:19 DC 03/23/18 18:51 10 ML Al Hydroxide/Mg Hydroxide (Maalox Susp) 30 ml STK-MED ONCE .ROUTE 03/23/18 18:18 8/6/18 18:19 DC 03/23/18 18:51 30 ML ECG Per My Interpretation Indication: abdominal pain Rate (beats per minute): 73 Findings: T-wave inversion (lead 3), other (normal axis. no PVCs. ) ED Course ED COURSE: Vital signs were reviewed and showed tachycardia. The patients medical record was reviewed The above diagnostic studies were performed and reviewed. ED treatments and interventions as stated above. 1806: The patient was evaluated in room A4B. A complete history and physical examination was performed. 1808: Ordered Zofran Inj 4 mg IV, Sodium Chloride 1000 ml @ 999 mls/hr IV 1809: Ordered GI cocktail 24 ml PO. 1840: I reviewed the patient's portable AV upright 1 view. No infiltrate or pneumothorax per my read. 1944: I reevaluated and updated the patient. 2037: Upon reevaluation, the patient is resting. I discussed my findings with the patient and he understands and agrees with the treatment plan. Based on the patients age, coexisting illnesses, exam and lab findings the decision to treat as an outpatient was made. The patient remained stable while under my care. The patient appeared well at the time of discharge. Medical Decision Differential diagnoses includes but is not limited to gastritis, peptic ulcer disease, GERD, gallbladder disease, pancreatitis, small bowel obstruction, acute coronary syndrome, pericarditis, ischemic bowel, irritable bowel disease, irritable bowel syndrome, appendicitis, diverticulitis, malignancy, hernia, urinary tract infection, torsion, perforation, trauma, infectious. Patient is a 27-year-old male who presents the ER for abdominal pain which is worse with eating and drinking. He describes as 8 out of 10. It does feel like his reflux which she is taking an antacid for. On exam he does have epigastric abdominal pain. Labs were obtained and CBC along with BMP, LFTs, bilirubin lipase is unremarkable. UA was negative. Chest x-ray was unremarkable. Ultrasound the gallbladder was unremarkable as well. Patient was given fluids, Zofran, GI cocktail and morphine. He did feel better. He was discharged follow-up with PCP as an outpatient. He did have reproducible anterior chest wall pain and consequently an EKG was obtained as well which was unremarkable. Discussed with Pt concerning signs and symptoms to watch out for. Pt was instructed to follow up with their PCP and discussed with the patient their option to return to the ED at anytime for persistent or worsening symptoms. The appropriate anticipatory guidance and out-patient management, including indications for return to the emergency department, were explained at length to the patient and understood. Medication Reconcilliation Current Medication List: was personally reviewed by me Blood Pressure Screening Patient's blood pressure: Normal blood pressure Blood pressure disposition: Did not require urgent referral Impression Primary Impression: Abdominal pain Additional Impressions: GERD (gastroesophageal reflux disease) Biliary sludge Scribe Attestation The scribe's documentation has been prepared under my direction and personally reviewed by me in its entirety. I confirm that the note above accurately reflects all work, treatment, procedures, and medical decision making performed by me. Departure Information Dispostion Home / Self-Care Prescriptions Sucralfate (CARAFATE) 1 Gm Tab 1 GM PO TID, #30 TAB Prov: Gregory Sharpe, DO 03/23/18 Referrals Bernice Gant D.O. (PCP) Forms HOME CARE DOCUMENTATION FORM, IMPORTANT VISIT INFORMATION Patient Instructions My [facility] Additional Instructions Please follow up with your primary care doctor with in the next 24 hours. Any worsening of your symptoms, please return to the ED immediately. This includes any fevers greater than 100.4, worsening pain, chest pain, shortness breath, persistent nausea, vomiting, unable to eat or drink, or any other concerning signs or symptoms from your standpoint. Ultrasound the right upper quadrant did show small amount of sludge in gallbladder. There is no acute findings for cholecystitis. Please continue with your reflux medication. Your given a prescription for Carafate which may also help to improve your reflux. Problem Qualifiers Primary Impression: Abdominal pain Abdominal location: unspecified location Qualified Codes: R10.9 - Unspecified abdominal pain Additional Impressions: GERD (gastroesophageal reflux disease) Esophagitis presence: esophagitis presence not specified Qualified Codes: K21.9 - Gastro-esophageal reflux disease without esophagitis
== END 2018-03-23 20:55 | disposition home or self-care (01) ==
LOC: C.EDB 15:48 → C.EDA 20:55
DX: R10.9 Unspecified abdominal pain (principal); K21.9 Gastro-esophageal reflux disease without esophagitis; K83.8 Other specified diseases of biliary tract; J45.909 Unspecified asthma, uncomplicated; E83.119 Hemochromatosis, unspecified; K29.70 Gastritis, unspecified, without bleeding; Z79.899 Other long term (current) drug therapy; Z79.51 Long term (current) use of inhaled steroids; Z88.8 Allergy status to other drugs, medicaments and biological substances